=== PATIENT | male | born 1990 | race Caucasian/White ===

== ENCOUNTER 2018-01-15 08:46 | Emergency (ER) | payer OTHER, BC | END 2018-01-15 10:52 | disposition home or self-care (01) | LOC: M ED 08:46 | DX: S93.402A Sprain of unspecified ligament of left ankle, initial encounter (principal); X50.9XXA Other and unspecified overexertion or strenuous movements or postures, initial encounter; Y92.59 Other trade areas as the place of occurrence of the external cause; Y99.0 Civilian activity done for income or pay; F17.200 Nicotine dependence, unspecified, uncomplicated; Z88.1 Allergy status to other antibiotic agents; Z98.890 Other specified postprocedural states | CPT/HCPCS: 73610 ==

== ENCOUNTER 2019-06-10 20:07 | Inpatient (IN) | payer OTHER, SELFPAY ==
[~2019-06-10] VITALS: Ht 177.8 cm; Wt 92.2 kg
[~2019-06-10 20:07] MED LIST: NAPR-837 PO
[2019-06-10] MEDS ORDERED: NS 1,000 ML IV ONE (20:15)
[2019-06-10] MEDS ORDERED: ONDANSETRON 4MG/2ML VIAL (J2405) IV ONE (20:15)
[2019-06-10] MEDS: MORPHINE 4 MG/ML 1ML VIAL/SYRINGE (J2270) IV PRN ×4 (20:28→22:28)
[2019-06-10] MEDS ORDERED: ISOVUE-370 76% 100ML VIAL (Q9967) As Ordered ONE (20:32)
[2019-06-10 20:36] LABS: BASO # 0.1 10^3/uL (0.0-0.2); BASO % 0.5 % (0.0-1.0); EOS # 0.1 10^3/uL (0.0-0.50); HEMATOCRIT 43.3 % (42.0-52.0); HEMOGLOBIN 15.3 g/dl (13.5-17.5); LYMPH # 1.9 10^3/uL (1.5-6.5); LYMPH % 14.5 % (24.0-44.0); MEAN CORPUSCULAR HEMOGLOBIN 34.6 pg (27.0-33.0); MEAN CORPUSCULAR HGB CONC 35.3 g/dl (32.0-36.5); MONO # 0.8 10^3/uL (0.0-0.8); MONO % 5.9 % (0.0-5.0); NEUTROPHILS # 10.2 10^3/uL (1.8-7.7); PLATELET COUNT, AUTOMATED 267 10^3/uL (150-450); RED BLOOD COUNT 4.42 10^6/uL (4.30-6.10); WHITE BLOOD COUNT 13.3 10^3/uL (4.0-10.0)
[2019-06-10 20:47] LABS: INR 0.99; PARTIAL THROMBOPLASTIN TIME 24.1 SECONDS (25.0-38.4); PROTHROMBIN TIME 12.8 SECONDS (11.8-14.0)
[2019-06-10 21:01] LABS: ALBUMIN 4.2 GM/DL (3.2-5.2); ALT/SGPT 190 U/L (12-78); AMYLASE 64 U/L (25-115); BILIRUBIN,DIRECT 0.1 MG/DL (0.0-0.2); BILIRUBIN,TOTAL 0.3 MG/DL (0.2-1.0); BLOOD UREA NITROGEN 8 MG/DL (7-18); CALCIUM LEVEL 9.1 MG/DL (8.5-10.1); CARBON DIOXIDE LEVEL 25 MEQ/L (21-32); CHLORIDE LEVEL 107 MEQ/L (98-107); CK-MB VALUE MASS 3.1 NG/ML (<3.6); CPK CREATINE PHOSPHOKINASE 427 U/L (39-308); CREATININE FOR GFR 0.92 MG/DL (0.70-1.30); ETHYL ALCOHOL (ETHANOL) 0.203 % (0.000-0.010); GLOMERULAR FILTRATION RATE > 60.0 (>60); GLUCOSE, FASTING 133 MG/DL (70-100); LIPASE 140 U/L (73-393); MB/CK RELATIVE INDEX 0.73 (< OR =4); POTASSIUM SERUM 3.8 MEQ/L (3.5-5.1); SODIUM LEVEL 140 MEQ/L (136-145); TOTAL PROTEIN 7.7 GM/DL (6.4-8.2); TROPONIN I < 0.02 NG/ML (< 0.10)
[2019-06-10] MEDS ORDERED: METOCLOPRAMIDE INJ 10MG/2ML VIAL (J2765) IV PRN (22:30)
[2019-06-10] MEDS ORDERED: ONDANSETRON 4MG/2ML VIAL (J2405) IV PRN (22:30)
[2019-06-10] MEDS ORDERED: NORCO, ANEXSIA 5/325MG TABLET (HYDROcodone/ACETAMINOPHEN) PO PRN (22:30)
[2019-06-10] MEDS: KETOROLAC 30 MG/ML VIAL (J1885) IV SCH (23:07)
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
[2019-06-10 23:37] VITALS: BP 128/89
[2019-06-10] MEDS: LR 1,000 ML IV SCH (23:44)
[2019-06-11] MEDS: MORPHINE 4 MG/ML 1ML VIAL/SYRINGE (J2270) IV PRN ×6 (00:44→20:32)
[2019-06-11 02:00] VITALS: BP 122/60
[2019-06-11 05:54] LABS: BASO % 0.4 % (0.0-1.0); EOS # 0.1 10^3/uL (0.0-0.50); EOS % 1.2 % (0.0-3.0); HEMATOCRIT 37.8 % (42.0-52.0); LYMPH # 1.4 10^3/uL (1.5-6.5); LYMPH % 18.9 % (24.0-44.0); MEAN CORPUSCULAR HGB CONC 34.9 g/dl (32.0-36.5); MEAN CORPUSCULAR VOLUME 97.4 fl (80.0-96.0); MONO # 0.6 10^3/uL (0.0-0.8); MONO % 8.5 % (0.0-5.0); NEUTROPHILS # 5.2 10^3/uL (1.8-7.7); NEUTROPHILS % 70.5 % (36.0-66.0); PLATELET COUNT, AUTOMATED 193 10^3/uL (150-450); RED BLOOD COUNT 3.88 10^6/uL (4.30-6.10); WHITE BLOOD COUNT 7.4 10^3/uL (4.0-10.0)
[2019-06-11 05:59] LABS: HEMOGLOBIN 13.2 g/dl (13.5-17.5)
[2019-06-11 06:00] VITALS: BP 125/82
[2019-06-11] MEDS: KETOROLAC 30 MG/ML VIAL (J1885) IV SCH ×4 (06:15→23:03)
[2019-06-11 06:22] LABS: ALBUMIN 3.4 GM/DL (3.2-5.2); ALT/SGPT 142 U/L (12-78); BILIRUBIN,TOTAL 0.8 MG/DL (0.2-1.0); BLOOD UREA NITROGEN 8 MG/DL (7-18); CALCIUM LEVEL 8.2 MG/DL (8.5-10.1); CARBON DIOXIDE LEVEL 28 MEQ/L (21-32); CHLORIDE LEVEL 108 MEQ/L (98-107); CREATININE FOR GFR 0.84 MG/DL (0.70-1.30); GLOMERULAR FILTRATION RATE > 60.0 (>60); GLUCOSE, FASTING 91 MG/DL (70-100); POTASSIUM SERUM 3.5 MEQ/L (3.5-5.1); SODIUM LEVEL 140 MEQ/L (136-145); TOTAL PROTEIN 6.3 GM/DL (6.4-8.2)
--- NOTE | 2019-06-11 07:21 | REP ---
Portable chest, 08:23 p.m., single AP view, the patient upright: There are no comparisons. The lung rojas are clear. The cardiac size is normal. The aziza, mediastinum, and skeletal structures are unremarkable except for a left eighth rib fracture . Impression: Left eighth rib fracture, otherwise, portable chest. Electronically Signed by Tyler Flores MD 06/11/2019 07:13 A
--- NOTE | 2019-06-11 07:51 | REP ---
Portable chest, 07:01 a.m., single AP view with the patient semi upright: There is a faintly visible fracture laterally of the left eighth rib, nondisplaced. There is a focal pleural-based density in the mid left hemithorax, nonspecific, atelectasis, infiltrate, pulmonary contusion versus mass. The The right lung is clear. Cardiac size is upper normal for portable positioning. The aziza, mediastinum, skeletal structures are unremarkable. Impression: Nonspecific density peripherally in the left lung. Nondisplaced I left eighth rib fracture. Electronically Signed by Tyler Flores MD 06/11/2019 07:42 A
[2019-06-11] MEDS: DOCUSATE SODIUM 100 MG CAP PO SCH ×2 (09:27→20:30)
[2019-06-11] MEDS: PANTOPRAZOLE 40MG TAB (PROTONIX) PO SCH (09:27)
[2019-06-11 10:00] VITALS: BP 122/71
[2019-06-11] MEDS: LR 1,000 ML IV SCH (11:07)
--- NOTE | 2019-06-11 20:18 | REP ---
CT BRAIN WITHOUT IV CONTRAST: TECHNIQUE: CT brain performed without IV contrast. The ventricles are normal in size and position with no midline shift or mass effect. Amaya/white differentiation is well maintained. There is no acute intracranial hemorrhage or extra-axial fluid collection. No skull fracture is seen. Visualized paranasal sinuses are clear. IMPRESSION: Negative noncontrast CT brain. Preliminary report provided by [facility] at the time of the exam. Electronically Signed by Tyler Amaya MD 06/13/2019 10:52 A
[2019-06-11 22:00] VITALS: BP 127/72
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
--- NOTE | 2019-06-11 22:16 | REP ---
CT of the cervical spine without IV contrast for trauma: Axial images are acquired helical scanning and a reformatted sagittal and coronal projections. Vertebral body heights, interspacing alignment are normal. The facets are normally aligned. The prevertebral soft tissues are normal. The skull base, C1 and C2 are unremarkable. A small accessory ossicle is incidentally noted along the inferior margin of the C1 anterior process. There are no posterior element fractures. Impression: There is no fracture or listhesis. Electronically Signed by Tyler Flores MD 06/11/2019 10:08 P
[2019-06-12] MEDS: MORPHINE 4 MG/ML 1ML VIAL/SYRINGE (J2270) IV PRN ×4 (02:57→20:11)
[2019-06-12] MEDS: KETOROLAC 30 MG/ML VIAL (J1885) IV SCH (05:22)
[2019-06-12 06:00] VITALS: BP 145/85
[2019-06-12] MEDS: DOCUSATE SODIUM 100 MG CAP PO SCH ×2 (08:37→20:08)
[2019-06-12] MEDS: PANTOPRAZOLE 40MG TAB (PROTONIX) PO SCH (08:37)
[2019-06-12] MEDS: PERCOCET 5MG/325MG TAB PO PRN ×3 (08:38→23:03)
[2019-06-12] MEDS: IBUPROFEN 600 MG TAB PO SCH ×2 (11:41→20:08)
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
[2019-06-12 14:00] VITALS: BP 120/68
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
[2019-06-12 18:00] VITALS: BP 129/81
[2019-06-12] MEDS ORDERED: MOM 30ML SUSPENSION UDC PO ONE (21:45)
[2019-06-12 22:00] VITALS: BP 139/95
[2019-06-13] MEDS: IBUPROFEN 600 MG TAB PO SCH ×3 (01:03→12:29)
[2019-06-13 02:00] VITALS: BP 140/91
[2019-06-13 06:00] VITALS: BP 152/100
[2019-06-13 10:00] VITALS: BP 136/95
[2019-06-13] MEDS: DOCUSATE SODIUM 100 MG CAP PO SCH (10:41)
[2019-06-13] MEDS: PANTOPRAZOLE 40MG TAB (PROTONIX) PO SCH (10:42)
[2019-06-13] MEDS: PERCOCET 5MG/325MG TAB PO PRN (10:42)
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
[2019-06-13] MEDS ORDERED: PERCOCET PO (12:53)
== END 2019-06-13 13:43 | disposition home or self-care (01) | DRG 135 ==
LOC: M ED 20:07 → M ED INP 22:29 → M MSPAV 23:37
PROVIDERS: ADMIT Surgery; ATTEND Surgery
DX: S27.321A Contusion of lung, unilateral, initial encounter (principal); S22.42XA Multiple fractures of ribs, left side, initial encounter for closed fracture; Z88.1 Allergy status to other antibiotic agents; V86.56XA Driver of dirt bike or motor/cross bike injured in nontraffic accident, initial encounter; Y92.79 Other farm location as the place of occurrence of the external cause; F17.290 Nicotine dependence, other tobacco product, uncomplicated; Y93.89 Activity, other specified

== ENCOUNTER 2019-07-11 23:01 | Emergency (ER) | payer SELFPAY ==
[~2019-07-11] VITALS: Ht 177.8 cm; Wt 91.8 kg
[~2019-07-11 23:01] MED LIST changes: +PERCOCET PO
[2019-07-11 23:02] VITALS: BP 149/96
[2019-07-11] MEDS ORDERED: LIDOCAINE W/EPINEPHRINE 1% 20ML VIAL SC ONE (23:45)
== END 2019-07-12 00:13 | disposition home or self-care (01) ==
LOC: M ED 23:01
DX: S81.012A Laceration without foreign body, left knee, initial encounter (principal); W22.8XXA Striking against or struck by other objects, initial encounter; Y92.89 Other specified places as the place of occurrence of the external cause; R07.81 Pleurodynia; F17.210 Nicotine dependence, cigarettes, uncomplicated

== ENCOUNTER 2019-12-30 22:09 | Emergency (ER) | payer SELFPAY ==
[~2019-12-30] VITALS: Ht 177.8 cm; Wt 93.2 kg
[2019-12-30 23:19] LABS: BASO % 0.6 % (0.0-1.0); EOS # 0.1 10^3/uL (0.0-0.5); EOS % 2.7 % (0.0-3.0); HEMATOCRIT 42.6 % (42.0-52.0); HEMOGLOBIN 15.1 g/dl (13.5-17.5); LYMPH # 1.1 10^3/uL (1.5-5.0); LYMPH % 22.5 % (24.0-44.0); MEAN CORPUSCULAR HEMOGLOBIN 33.6 pg (27.0-33.0); MEAN CORPUSCULAR HGB CONC 35.4 g/dl (32.0-36.5); MEAN CORPUSCULAR VOLUME 94.7 fl (80.0-96.0); MONO # 0.5 10^3/uL (0.0-0.8); MONO % 11.2 % (0.0-5.0); NEUTROPHILS % 62.8 % (36.0-66.0); PLATELET COUNT, AUTOMATED 152 10^3/uL (150-450); WHITE BLOOD COUNT 4.8 10^3/uL (4.0-10.0)
[2019-12-30 23:34] LABS: INR 0.96; PROTHROMBIN TIME 12.5 SECONDS (11.8-14.0)
[2019-12-30 23:35] LABS: PARTIAL THROMBOPLASTIN TIME 27.9 SECONDS (25.0-38.4)
[2019-12-30 23:45] LABS: D-DIMER QUANT < 270 ng/ml (<500)
[2019-12-31 00:10] LABS: ALBUMIN 4.2 GM/DL (3.2-5.2); ALT/SGPT 182 U/L (12-78); BILIRUBIN,DIRECT 0.2 MG/DL (0.0-0.2); BILIRUBIN,TOTAL 0.5 MG/DL (0.2-1.0); BLOOD UREA NITROGEN 5 MG/DL (7-18); CARBON DIOXIDE LEVEL 27 MEQ/L (21-32); CHLORIDE LEVEL 104 MEQ/L (98-107); CK-MB VALUE MASS 4.1 NG/ML (<3.6); CPK CREATINE PHOSPHOKINASE 455 U/L (39-308); CREATININE FOR GFR 0.78 MG/DL (0.70-1.30); FREE T4 0.87 NG/DL (0.76-1.46); GLOMERULAR FILTRATION RATE > 60.0 (>60); GLUCOSE, FASTING 97 MG/DL (70-100); MAGNESIUM LEVEL 2.2 MG/DL (1.8-2.4); PHOSPHORUS LEVEL 3.5 MG/DL (2.5-4.9); POTASSIUM SERUM 3.6 MEQ/L (3.5-5.1); SODIUM LEVEL 141 MEQ/L (136-145); TOTAL PROTEIN 7.5 GM/DL (6.4-8.2); TROPONIN I < 0.02 NG/ML (< 0.10)
[2019-12-31 00:39] VITALS: BP 130/82
--- NOTE | 2019-12-31 03:05 | REP ---
Clinical: Chest pain . Comparison: 06/10/2019 . Technique: PA and lateral. Findings: The mediastinum and cardiac silhouette are normal. The lung rojas are clear and without acute consolidation, effusion, or pneumothorax. The skeletal structures are intact and normal. Impression: 1. No acute cardiopulmonary process. Electronically Signed by Enrique Horta MD 12/31/2019 02:57 A
--- NOTE | 2019-12-31 20:53 | ECGEPIP ---
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
== END 2019-12-31 00:53 | disposition home or self-care (01) ==
LOC: M ED 22:09
DX: R00.2 Palpitations (principal); I45.19 Other right bundle-branch block; F10.10 Alcohol abuse, uncomplicated; Z88.1 Allergy status to other antibiotic agents

== ENCOUNTER 2020-11-11 14:35 | Emergency (ER) | payer OTHER ==
[~2020-11-11] VITALS: Ht 177.8 cm; Wt 82.4 kg
--- OUTSIDE RECORDS SUMMARY | 2020-11-11 14:47 | CCD ---
Author Author [facility] Organization [facility] Address Unknown Phone Unavailable Support Name Relationship Address Phone MARIO FLORES Next Of Kin Unknown [employer] [place] [place] [address] [employer] Next Of Kin [id number] [address] [employer] Next Of Kin [address] [place] [address] John TAM Next Of Kin [address] [place] [address] Re-disclosure Warning The records that you are about to access may contain information from federally-assisted alcohol or drug abuse programs. If such information is present, then the following federally mandated warning applies: This information has been disclosed to you from records protected by federal confidentiality rules (42 CFR part 2). The federal rules prohibit you from making any further disclosure of this information unless further disclosure is expressly permitted by the written consent of the person to whom it pertains or as otherwise permitted by 42 CFR part 2. A general authorization for the release of medical or other information is NOT sufficient for this purpose. The Federal rules restrict any use of the information to criminally investigate or prosecute any alcohol or drug abuse patient.The records that you are about to access may contain highly sensitive health information, the redisclosure of which is protected by Article 27-F of the [place] State Public Health law. If you continue you may have access to information: Regarding HIV / AIDS; Provided by facilities licensed or operated by the [facility] of Mental Health; or Provided by the [facility] for People With Developmental Disabilities. If such information is present, then the following [facility] mandated warning applies: This information has been disclosed to you from confidential records which are protected by state law. State law prohibits you from making any further disclosure of this information without the specific written consent of the person to whom it pertains, or as otherwise permitted by law. Any unauthorized further disclosure in violation of state law may result in a fine or shelter sentence or both. A general authorization for the release of medical or other information is NOT sufficient authorization for further disc losure. Encounters Encounter Providers Location Date Indications Data Source(s ) Outpatient 01/22/2020 05:43:00 AM EDT [facility] Outpatient 01/21/2020 04:05:00 PM EDT [facility] Insurance Providers Payer name Policy type / Coverage type Policy ID Covered republican ID Covered republican's relationship to chapa Policy Chapa Plan Information [employer] INSUR[employer] [place] [id number] SP [id number] [employer] MECHANICALS SP BCBS [place] PPO 302/307 [id number] MO2 [id number] CIGNA/MVP/CONN GEN/PREFE O [id number] S [id number] EXCELLUS BCBS B [id number] S [id number] SELF PAY ONLY [id number] SP [id number] 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
--- OUTSIDE RECORDS SUMMARY | 2020-11-11 15:55 | CCD ---
Author Author [facility] Organization [facility] Address Unknown Phone Unavailable Support Name Relationship Address Phone MARIO FLORES Next Of Kin Unknown [employer] [place] [address] [employer] Next Of Kin [address] [address] [employer] Next Of Kin [address] [place] [address] John TAM Next Of Kin [address] [place], [place] [id number] Re-disclosure Warning The records that you are [...] is protected by Article 27-F of the [facility] Public [facility] law. If you continue you [...] law may result in a fine or senior living sentence or both. A general authorization for the release of medical or other information is NOT sufficient authorization for further disc losure. Encounters Encounter Providers Location Date Indications Data Source(s ) Outpatient 01/22/2020 05:43:00 AM EDT [facility] Outpatient 01/21/2020 04:05:00 PM EDT [facility] Insurance Providers Payer name Policy type / Coverage type Policy ID Covered libertarian ID Covered libertarian's relationship to chapa Policy Chapa Plan Information CIGNA INSURANCE CO [id number] SP [id number] [employer] MECHANICALS SP BCBS [place] PPO 302/307 [id number] CIGNA/MVP/CONN GEN/PREFE O [id number] S [id number] EXCELLUS BCBS B [id number] S [id number] SELF PAY ONLY [id number] SP [id number] 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
[2020-11-11] MEDS ORDERED: NS 1,000 ML IV ONE (18:00)
[2020-11-11 18:02] LABS: BASO % 0.6 % (0.0-1.0); EOS % 0.6 % (0.0-3.0); HEMATOCRIT 44.2 % (42.0-52.0); HEMOGLOBIN 15.7 g/dl (13.5-17.5); LYMPH # 1.4 10^3/uL (1.5-5.0); LYMPH % 21.7 % (24.0-44.0); MEAN CORPUSCULAR HEMOGLOBIN 33.9 pg (27.0-33.0); MEAN CORPUSCULAR HGB CONC 35.5 g/dl (32.0-36.5); MEAN CORPUSCULAR VOLUME 95.5 fl (80.0-96.0); MONO # 0.9 10^3/uL (0.0-0.8); MONO % 14.9 % (0.0-5.0); NEUTROPHILS # 3.9 10^3/uL (1.5-8.5); NEUTROPHILS % 61.9 % (36.0-66.0); PLATELET COUNT, AUTOMATED 228 10^3/uL (150-450); RED BLOOD COUNT 4.63 10^6/uL (4.30-6.10); WHITE BLOOD COUNT 6.3 10^3/uL (4.0-10.0)
--- NOTE | 2020-11-11 18:13 | REP ---
INDICATION: CHEST PAIN. COMPARISON: Comparison chest x-ray December 30, 2019. TECHNIQUE: Portable upright AP chest radiograph. FINDINGS: The lungs are well inflated and free of infiltrate. Pleural angles are sharp. Heart size is normal. Pulmonary vasculature is not increased. There are multiple old healed rib fractures on the left. Monitoring electrodes are seen. Periarticular ossific densities are seen adjacent to the distal clavicle on the left unchanged. This may be post traumatic change is well. No acute bony abnormality. IMPRESSION: No active disease. <Electronically signed by Ruiz Tran > 11/11/20 [id number]
[2020-11-11 18:29] LABS: ERYTHROCYTE SEDIMENTATION RATE 2 mm/hr (0-15)
--- NOTE | 2020-11-11 18:33 | ECGEPIP ---
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
[2020-11-11 18:44] LABS: ALBUMIN 4.6 GM/DL (3.2-5.2); ALT/SGPT 221 U/L (12-78); BILIRUBIN,DIRECT 0.7 MG/DL (0.0-0.2); CK-MB VALUE MASS 5.6 NG/ML (<3.6); CPK CREATINE PHOSPHOKINASE 756 U/L (39-308); FREE T4 1.01 NG/DL (0.76-1.46); LIPASE 293 U/L (73-393); MB/CK RELATIVE INDEX 0.74 (< OR =4); TOTAL PROTEIN 8.1 GM/DL (6.4-8.2); TROPONIN I < 0.02 NG/ML (< 0.10)
[2020-11-11 19:02] LABS: AMPHETAMINES LEVEL URINE NEGATIVE (NEGATIVE); BARBITURATES URINE NEGATIVE (NEGATIVE); BENZODIAZEPINES URINE NEGATIVE (NEGATIVE); CANNABINOIDS URINE POSITIVE (NEGATIVE); COCAINE METABOLITE URINE POSITIVE (NEGATIVE); METHADONE URINE NEGATIVE (NEGATIVE); OPIATES URINE NEGATIVE (NEGATIVE); PHENCYCLIDINE URINE NEGATIVE (NEGATIVE)
[2020-11-11] MEDS ORDERED: ISOVUE-370 76% 100ML VIAL As Ordered ONE (19:19)
--- NOTE | 2020-11-11 20:22 | REPVR ---
PROCEDURE INFORMATION: Exam: CT Angiography Chest With Contrast Exam date and time: 11/11/2020 7:44 PM Age: 30 years old Clinical indication: Shortness of breath; Additional info: Sob/elevated ddmier TECHNIQUE: Imaging protocol: Computed tomographic angiography of the chest with intravenous contrast. 3D rendering (Not supervised by radiologist): MIP and/or 3D reconstructed images were created by the technologist. Radiation optimization: All CT scans at this facility use at least one of these dose optimization techniques: automated exposure control; mA and/or kV adjustment per patient size (includes targeted exams where dose is matched to clinical indication); or iterative reconstruction. Contrast material: ISOVUE 370; Contrast volume: 75 ml; Contrast route: INTRAVENOUS (IV); COMPARISON: CT Chest with contrast 06/10/2019 8:44 PM FINDINGS: Pulmonary arteries: Normal. No pulmonary emboli. Aorta: Unremarkable. No aortic aneurysm. No aortic dissection. Lungs: Unremarkable. No consolidation. No masses. Pleural space: Unremarkable. No pneumothorax. No pleural effusion. Heart: Unremarkable. No cardiomegaly. No pericardial effusion. Lymph nodes: Unremarkable. No enlarged lymph nodes. Bones/joints: Unremarkable. No acute fracture. Soft tissues: Unremarkable. IMPRESSION: No acute findings. Electronically signed by: Kurtis Anthony On 11/11/2020 20:22:57 PM
[2020-11-11 21:00] VITALS: BP 134/95
== END 2020-11-11 21:04 | disposition home or self-care (01) ==
LOC: M ED 14:35
DX: E86.0 Dehydration (principal); F41.9 Anxiety disorder, unspecified; F12.20 Cannabis dependence, uncomplicated; Z88.1 Allergy status to other antibiotic agents
CPT/HCPCS: 36415; 71045; 71275; 80047; 80076; 80307; 82550; 82553; 83690; 84439; 84443; 84484; 85025; 85379; 85652; 86140; 87486; 87581; 87633; 87798; 93005; 99284; Q9967

== ENCOUNTER 2021-08-15 10:28 | Inpatient (IN) | payer OTHER, SELFPAY ==
[~2021-08-15] VITALS: Ht 177.8 cm; Wt 84.5 kg
--- OUTSIDE RECORDS SUMMARY | 2021-08-15 10:35 | CCD ---
Author Author [facility] Organization [facility] Address Unknown Phone Unavailable Support Name Relationship Address Phone MARIO FLORES Next Of Kin Unknown [employer] [place] [place] [address] [employer] Next Of Kin [id number] [address] [place] Next Of Kin [address] [place] [address] John TAM Next Of Kin [address] [place], [place] [id number] Re-disclosure Warning The records that you are [...] is protected by Article 27-F of the [facility] [place] Public Health law. If you continue you may have access to information: Regarding HIV / AIDS; Provided by facilities licensed or operated by the [facility] [place] Office of Mental Health; or Provided by the [facility] [place] Office for People With Developmental Disabilities. If such information is present, then the following [facility] [place] mandated warning applies: This information has been [...] NOT sufficient authorization for further disc losure. Medications No Information Insurance Providers Payer name Policy type / Coverage type Policy ID Covered green party ID Covered green party's relationship to chapa Policy Chapa Plan Information BLUE CROSS [id number] CH [id number] EXCELLUS C [id number] Self [id number] BLUE CROSS [id number] CH [id number] EXCELLUS C [id number] Child [id number] CIGNA/MVP/CONN GEN/PREFE O [id number] S [id number] EXCELLUS BCBS B [id number] S [id number] SELF PAY ONLY [id number] SP [id number] [employer]ERTY [employer] COMP [id number] SP [id number] LIBERTY MUTUAL INS [place] O [id number] O [id number] CIGNA INSURANCE CO [id number] SP [id number] CIGNA INSURANCE CO [id number] SP [id number] [employer] SP BCBS [place] PPO 302/307 [id number] MO2 [id number] Problems, Conditions, and Diagnoses No Information Surgeries/Procedures No Information Results ID Date Data Source [id number] 11/11/2020 05:33:00 PM EST [facility] Name Value Range Interpretation Code Description Data Stefany rce(s) Supporting Document(s) SARS-CoV-2 (COVID 19) NEGATIVE - SARS-CoV-2 (COVID19) [facility] This lab was ordered by [facility] a nd reported by [facility]. Procedure Social History No Information
[2021-08-15] MEDS ORDERED: MORPHINE 4 MG/ML 1ML VIAL/SYRINGE (J2270) IV ONE (11:35)
[2021-08-15] MEDS ORDERED: ONDANSETRON 4MG/2ML VIAL IV ONE ×2 (11:40→21:05)
[2021-08-15] MEDS ORDERED: ISOVUE-370 76% 100ML VIAL As Ordered ONE (11:49)
[2021-08-15 11:58] LABS: BASO # 0.1 10^3/uL (0.0-0.2); BASO % 0.5 % (0.0-1.0); EOS # 0.1 10^3/uL (0.0-0.5); EOS % 0.5 % (0.0-3.0); HEMOGLOBIN 15.3 g/dl (13.5-17.5); LYMPH # 1.4 10^3/uL (1.5-5.0); LYMPH % 10.4 % (24.0-44.0); MEAN CORPUSCULAR HEMOGLOBIN 34.7 pg (27.0-33.0); MEAN CORPUSCULAR HGB CONC 34.8 g/dl (32.0-36.5); MEAN CORPUSCULAR VOLUME 99.8 fl (80.0-96.0); MONO # 0.7 10^3/uL (0.0-0.8); MONO % 5.5 % (2.0-8.0); NEUTROPHILS # 10.9 10^3/uL (1.5-8.5); NEUTROPHILS % 82.8 % (36.0-66.0); PLATELET COUNT, AUTOMATED 249 10^3/uL (150-450); RED BLOOD COUNT 4.41 10^6/uL (4.30-6.10); WHITE BLOOD COUNT 13.2 10^3/uL (4.0-10.0)
[2021-08-15] MEDS ORDERED: KETOROLAC 30 MG/ML 1ML VIAL IV ONE (12:30)
[2021-08-15 12:33] LABS: ALBUMIN 3.9 GM/DL (3.2-5.2); BILIRUBIN,DIRECT 0.2 MG/DL (0.0-0.2); BILIRUBIN,TOTAL 0.5 MG/DL (0.2-1.0); TOTAL PROTEIN 7.1 GM/DL (6.4-8.2)
--- NOTE | 2021-08-15 12:48 | REP ---
INDICATION: incarerated hernia. COMPARISON: 06/10/2019 the latest prior TECHNIQUE: Standard helical technique after the intravenous administration of 100 cc Isovue 370 FINDINGS: The lung bases are clear. The liver, gallbladder, spleen, adrenal glands, and kidneys are within normal limits. There is peripancreatic fatty infiltration with fluid in the anterior pararenal space. There is fluid in the left paracolic gutter. There is a small amount of fluid in the lesser sac. There is a small amount of fluid trapped within the leaves of the small bowel mesentery. There is a small amount of free pelvic fluid. There is dilatation of the intra pancreatic common bile duct which measures 1.9 cm. The abdominal aorta and para-aortic regions are within normal limits. There is no evidence of intestinal obstruction. A few small bowel loops in the left upper quadrant have mildly thickened lackey. There is no evidence of free intraperitoneal air. Bone window technique throughout the examination shows the osseous structures to be stable and intact. IMPRESSION: 1. There is pancreatitis with related findings secondary to that condition as described above. 2. Likely reactive small-bowel enteritis. 3. Dilatation of the intrapancreatic common bile duct as described above. This should be followed up. 4. Other findings as described above. <Electronically signed by David Bustillo > 08/15/21 [id number]
[2021-08-15] MEDS ORDERED: NS 1,000 ML IV ONE ×2 (12:50→14:50)
[2021-08-15] MEDS ORDERED: PANTOPRAZOLE 40MG VIAL (C9113 PER 1) IV ONE (13:00)
[2021-08-15] MEDS ORDERED: MORPHINE 2 MG/ML 1ML VIAL (J2270) IV ONE (13:10)
--- OUTSIDE RECORDS SUMMARY | 2021-08-15 13:38 | CCD ---
Author Author [facility] Organization [facility] Address Unknown Phone Unavailable Support Name Relationship Address Phone MARIO FLORES Next Of Kin Unknown [employer] [place] [place] [address] [employer] Next Of Kin [phone] [address] [place] Next Of Kin [address] [place] [address] John TAM Next Of Kin [address] [place], [place] [id number] Re-disclosure Warning The records that you are [...] is protected by Article 27-F of the [facility] Public Health law. If you continue you may have access to information: Regarding HIV / AIDS; Provided by facilities licensed or operated by the [facility] Office of Mental Health; or Provided by the [facility] Office for People With Developmental Disabilities. If such information is present, then the following [facility] mandated warning applies: This information has been [...] chapa Policy Chapa Plan Information BLUE CROSS [id number] CH [id number] EXCELLUS C [id number] Self [id number] BLUE CROSS [id number] CH [id number] EXCELLUS C [id number] Child [id number] CIGNA/MVP/CONN GEN/PREFE O [id number] S [id number] EXCELLUS BCBS B [id number] S [id number] SELF PAY ONLY [id number] SP [id number] [employer] WORK[employer] COMP [id number] SP [id number] LIBERTY MUTUAL INS CO O [id number] O [id number] CIGNA INSURANCE CO [id number] SP [id number] CIGNA INSURANCE CO [id number] SP [id number] [employer] SP BCBS [place] PPO 302/307 [id number] MO2 [id number] Problems, Conditions, and Diagnoses No Information Surgeries/Procedures No Information Results ID Date Data Source [id number] 11/11/2020 05:33:00 PM EST [facility] Name Value Range Interpretation Code Description Data Stefany rce(s) Supporting Document(s) SARS-CoV-2 (COVID 19) NEGATIVE - SARS-CoV-2 (COVID19) [facility] This lab was ordered by [facility] a nd reported by [facility]. Procedure Social History No Information
[2021-08-15] MEDS ORDERED: HYDROmorphone 2 MG TAB PO ONE ×2 (14:05→14:10)
[2021-08-15] MEDS ORDERED: HOME MED LIST COMPLETE! XX SCH (14:10)
[2021-08-15] MEDS ORDERED: HYDROMORPHONE HCL 0.5 MG/ 0.5 ML SYRINGE (J1170 PER 1) IV ONE (14:10)
--- NOTE | 2021-08-15 15:37 | REP ---
INDICATION: possible intrapancreatic duct blockage. COMPARISON: No prior ultrasounds for comparison. TECHNIQUE: Real-time sonographic evaluation of the right upper quadrant. FINDINGS: The patient has known pancreatitis from prior CT obtained earlier today which was reviewed. There is no evidence of intrahepatic ductal dilatation. The common bile duct measures between 3 and 4 mm. There is evidence of dilatation of the intrapancreatic common bile duct. This was seen better on CT. There is no shane gallbladder abnormality. There is no pericholecystic edema. There is no evidence of cholelithiasis. The imaged portion the right kidney is within normal limits. The pancreas is difficult to visualize due to known pancreatitis. There is free fluid. IMPRESSION: 1. Known pancreatitis. 2. No shane gallbladder abnormality. 3. Evidence of dilatation of the intrapancreatic common bile duct. Etiology unknown. No definite choledocholithiasis was identified on this exam. Consider MRCP if clinically relevant. <Electronically signed by David Bustillo > 08/15/21 [id number]
[2021-08-15 15:39] LABS: ALBUMIN 3.7 GM/DL (3.2-5.2); BILIRUBIN,DIRECT 0.2 MG/DL (0.0-0.2); BILIRUBIN,TOTAL 0.5 MG/DL (0.2-1.0); TOTAL PROTEIN 6.6 GM/DL (6.4-8.2)
--- NOTE | 2021-08-15 16:49 | REP ---
INDICATION: possible stone intrapancreatic CBD. COMPARISON: CT and ultrasound today. TECHNIQUE: Multiple heavily T2 weighted sequences are obtained in the axial and coronal planes. 3D MIP reconstruction images are performed. FINDINGS: There is no intrahepatic or extrahepatic biliary dilatation. There is no gross biliary stricture and no focal dilatation. Common bile duct has a maximum diameter of approximately 2 mm. Pancreatic duct is normal in caliber. Gallbladder is mildly distended with no wall thickening or edema. No internal filling defect or gallstone is seen. There is no evidence of choledocholithiasis. The pancreas demonstrates diffuse edema with findings of diffuse pancreatitis. A cystic structure in the head of the pancreas demonstrates a fluid level and likely represents a hemorrhagic or proteinaceous pseudocyst, maximum diameter 2.1 cm. The liver, spleen, adrenals, and kidneys are grossly unremarkable. I see no adenopathy in the abdomen.There is mild free fluid throughout the abdomen. IMPRESSION: Findings compatible with pancreatitis. Cystic structure in the pancreatic head likely represents a hemorrhagic or proteinaceous pseudocyst 2.1 cm. No intrahepatic or extrahepatic biliary dilatation. No pancreatic duct dilatation. Unremarkable appearance of the gallbladder. Mild diffuse free fluid. <Electronically signed by Tyler Amaya > 08/15/21 [id number]
[2021-08-15] MEDS ORDERED: fentaNYL 100 MCG/2 ML INJECTION (J3010) IV ONE (16:50)
[2021-08-15] MEDS ORDERED: LR 1,000 ML IV ONE (17:10)
[2021-08-15] MEDS: NS 1,000 ML IV SCH ×2 (17:45→22:45)
--- OUTSIDE RECORDS SUMMARY | 2021-08-15 17:50 | CCD ---
Author Author [facility] Organization [facility] Address Unknown Phone Unavailable Support Name Relationship Address Phone MARIO FLORES Next Of Kin Unknown [employer] [place] [place] [address] [employer] Next Of Kin [address] [address] [place] Next Of Kin [address] [place] [address] John TAM Next Of Kin [address] [place], [place] [id number] Re-disclosure Warning The records that you are [...] is protected by Article 27-F of the [facility] Public Health law. If you continue you may have access to information: Regarding HIV / AIDS; Provided by facilities licensed or operated by the [facility] Office of Mental Health; or Provided by the [facility] Office for People With Developmental Disabilities. If such information is present, then the following [facility] mandated warning applies: This information has [...] law may result in a fine or halfway sentence or both. A general authorization for the release of medical or other information is NOT sufficient authorization for further disc losure. Medications No Information Insurance Providers Payer name Policy type / Coverage type Policy ID Covered libertarian ID Covered libertarian's relationship to chapa Policy Chapa Plan Information BLUE CROSS [id number] CH [id number] EXCELLUS C [id number] Self [id number] BLUE CROSS [id number] CH [id number] EXCELLUS C [id number] Child [id number] CIGNA/MVP/CONN GEN/PREFE O [id number] S [id number] EXCELLUS BCBS B [id number] S [id number] SELF PAY ONLY [id number] SP [id number] [employer] COMP [id number] SP [id number] LIBERTY MUTUAL INS CO O [id number] O [id number] CIGNA INSURANCE CO [id number] SP [id number] CIGNA INSURANCE CO [id number] SP [id number] [employer] SP BCBS [place] PPO 302/307 [id number] MO2 [id number] Problems, Conditions, and Diagnoses No Information Surgeries/Procedures No Information Results ID Date Data Source [id number] 11/11/2020 05:33:00 PM EST [facility] Name Value Range Interpretation Code Description Data Stefany rce(s) Supporting Document(s) SARS-CoV-2 (COVID 19) NEGATIVE - SARS-CoV-2 (COVID19) [facility] This lab was ordered by [facility] a nd reported by [facility]. Procedure Social History No Information
[2021-08-15] MEDS ORDERED: LORazepam 2 MG/ML VIAL IV PRN (18:10)
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
[2021-08-15] MEDS: HYDROMORPHONE HCL 0.5 MG/ 0.5 ML SYRINGE (J1170 PER 1) IV PRN ×2 (18:33→21:09)
[2021-08-15 21:33] LABS: BLOOD UREA NITROGEN 8 MG/DL (7-18); CALCIUM LEVEL 8.5 MG/DL (8.5-10.1); CARBON DIOXIDE LEVEL 23 MEQ/L (21-32); CHLORIDE LEVEL 110 MEQ/L (98-107); CREATININE FOR GFR 0.78 MG/DL (0.70-1.30); GLOMERULAR FILTRATION RATE > 60.0 (>60); GLUCOSE, FASTING 111 MG/DL (70-100); MAGNESIUM LEVEL 1.4 MG/DL (1.8-2.4); POTASSIUM SERUM 4.1 MEQ/L (3.5-5.1); SODIUM LEVEL 144 MEQ/L (136-145)
[2021-08-15 22:42] VITALS: BP 142/90
[2021-08-15] MEDS: HYDROmorphone HCL 2 MG/ML 1ML VIAL IV PRN (22:55)
[2021-08-16] VITALS (11 sets, daily range): BP systolic 140–169; BP diastolic 84–103; O2SAT 94
[2021-08-16] MEDS ORDERED: MORPHINE 4 MG/ML 1ML VIAL/SYRINGE (J2270) IV ONE ×2 (01:10→06:40)
[2021-08-16] MEDS: MAG SULF 1GM/100ML (MAG RUN) 1 GM in IV 1 EA IV SCH ×2 (01:21→03:55)
[2021-08-16] MEDS: FOLIC ACID 1 MG in NS 50 ML IV SCH ×2 (02:40→20:11)
[2021-08-16] MEDS: HYDROmorphone HCL 2 MG/ML 1ML VIAL IV PRN ×3 (02:41→20:11)
[2021-08-16] MEDS: THIAMINE 200MG 2ML VIAL IV SCH ×2 (02:53→09:28)
[2021-08-16] MEDS: NS 1,000 ML IV SCH ×4 (03:55→20:11)
[2021-08-16] MEDS ORDERED: HYDROMORPHONE HCL 0.5 MG/ 0.5 ML SYRINGE (J1170 PER 1) IV ONE (04:05)
[2021-08-16] MEDS ORDERED: NALOXONE INJ 0.4MG/1ML VIAL (J2310 PER 1MG) IV PRN (04:05)
[2021-08-16 05:21] LABS: BASO % 0.2 % (0.0-1.0); HEMATOCRIT 37.5 % (42.0-52.0); LYMPH # 0.5 10^3/uL (1.5-5.0); LYMPH % 4.5 % (24.0-44.0); MEAN CORPUSCULAR HEMOGLOBIN 35.2 pg (27.0-33.0); MEAN CORPUSCULAR HGB CONC 35.2 g/dl (32.0-36.5); MONO # 0.5 10^3/uL (0.0-0.8); MONO % 5.2 % (2.0-8.0); NEUTROPHILS # 9.1 10^3/uL (1.5-8.5); NEUTROPHILS % 89.7 % (36.0-66.0); PLATELET COUNT, AUTOMATED 190 10^3/uL (150-450); RED BLOOD COUNT 3.75 10^6/uL (4.30-6.10); WHITE BLOOD COUNT 10.1 10^3/uL (4.0-10.0)
[2021-08-16 05:25] LABS: HEMOGLOBIN 13.2 g/dl (13.5-17.5)
[2021-08-16 05:51] LABS: ALBUMIN 3.4 GM/DL (3.2-5.2); ALT/SGPT 107 U/L (12-78); BILIRUBIN,TOTAL 1.5 MG/DL (0.2-1.0); BLOOD UREA NITROGEN 12 MG/DL (7-18); CALCIUM LEVEL 7.7 MG/DL (8.5-10.1); CARBON DIOXIDE LEVEL 26 MEQ/L (21-32); CHLORIDE LEVEL 105 MEQ/L (98-107); CREATININE FOR GFR 0.79 MG/DL (0.70-1.30); GLOMERULAR FILTRATION RATE > 60.0 (>60); GLUCOSE, FASTING 126 MG/DL (70-100); LDH LACTATE DEHYDROGENASE 230 U/L (87-241); LIPASE 5881 U/L (73-393); MAGNESIUM LEVEL 1.9 MG/DL (1.8-2.4); NT-PRO BNP 343 PG/ML (<125); POTASSIUM SERUM 3.8 MEQ/L (3.5-5.1); SODIUM LEVEL 139 MEQ/L (136-145)
--- NOTE | 2021-08-16 09:20 | REP ---
INDICATION: acute abdominal rigidity COMPARISON: 03/10/2021. TECHNIQUE: CT Scan of the abdomen and pelvis was performed without intravenous contrast. Sagittal and coronal reconstruction images performed. FINDINGS: Lung bases: There are bibasilar atelectatic changes. Liver: Grossly unremarkable. Gallbladder: Excreted contrast is seen in the lumen of the gallbladder. Spleen: Grossly unremarkable. Adrenals: Normal. Pancreas: There are again findings consistent with pancreatitis.. Kidneys: No hydronephrosis. Ureters demonstrate no dilatation or calculus. A subcentimeter calculus is visualized in the lower pole the left kidney. Small and large bowel: There are mildly dilated small bowel loops in left upper quadrant most consistent with ileus. Free fluid: There is mild diffuse abdominal and pelvic ascites which has increased since the prior study.. There is no free air. Abdominal aorta: No aneurysm. Adenopathy: None. Appendix: Not inflamed. Osseous structures: Unremarkable. Pelvis: No mass. No bladder calculus seen. IMPRESSION: There are findings consistent with pancreatitis. Mild diffuse abdominal and pelvic ascites has mildly increased since the prior exam. No free air or obstruction. Mild small bowel ileus left upper quadrant. <Electronically signed by Tyler Amaya > 08/16/21 0955
[2021-08-16] MEDS ORDERED: OXAZEPAM 10 MG CAP PO ONE (12:00)
[2021-08-16] MEDS ORDERED: diazePAM 10MG/2ML SYRINGE (J3360 PER 5MG) IV ONE (12:40)
[2021-08-16] MEDS: HYDROMORPHONE HCL 0.5 MG/ 0.5 ML SYRINGE (J1170 PER 1) IV PRN (15:42)
[2021-08-16] MEDS: LORazepam 2 MG/ML VIAL IV PRN ×2 (19:13→22:22)
--- NOTE | 2021-08-16 20:58 | IPNPDOC ---
Date Seen The patient was seen on 08/16/21. Progress Note SUBJECTIVE: Patient is a -year-old [RACE] [GENDER] with OBJECTIVE PHYSICAL EXAMINATION: VITAL SIGNS: Please see below. GENERAL: HEENT: CARDIOVASCULAR: . RESPIRATORY: . ABDOMINAL: EXTREMITIES: NEUROLOGICAL: PSYCHOLOGICAL: LABORATORY DATA, IMAGING STUDIES, MICROBIOLOGY: Please see below. Echocardiogram: . DVT prophylaxis ordered?: ASSESSMENT AND PLAN: This is a -year-old [RACE] [GENDER] with . PROBLEMS: 1. : . 2. : . 3. : . DISPOSITION: . VS, I&O, 24H, [facility] Vital Signs/I&O Vital Signs Date Time Temp Pulse Resp B/P (MAP) Pulse Ox O2 Delivery O2 Flow Rate FiO2 08/16/21 20:11 18 Room Air 08/16/21 20:00 99.3 80 156/90 (112) 93 I&O- Last 24 Hours up to 6 AM 08/16/21 06:00 Intake Total 4500 ml Output Total 200 ml Balance 4300 ml Laboratory Data 24H LABS Laboratory Tests 2 08/16/21 04:20: Urine Color KAMI, Urine Appearance HAZY, Urine pH 5.0, Urine Specific [place] 1.036, Urine Protein 2+H, Urine Glucose (UA) NEGATIVE, Urine Ketones 1+H, Urine Blood 1+H, Urine Nitrite NEGATIVE, Urine Bilirubin NEGATIVE, Urine Urobilinogen 0.2, Urine Leukocyte Esterase NEGATIVE, Urine WBC (Auto) 2, Urine RBC (Auto) 0, Urine Hyaline Casts (Auto) 0, Urine Bacteria (Auto) NEGATIVE, Urine Squamous Epithelial Cells 0, Urine Mucus (Auto) SMALL, Urine Sperm (Auto) 08/16/21 05:11: Immature Granulocyte % (Auto) 0.4, Neutrophils (%) (Auto) 89.7H, Lymphocytes (%) (Auto) 4.5L, Monocytes (%) (Auto) 5.2, Eosinophils (%) (Auto) 0.0, Basophils (%) (Auto) 0.2, Neutrophils # (Auto) 9.1H, Lymphocytes # (Auto) 0.5L, Monocytes # (Auto) 0.5, Eosinophils # (Auto) 0.0, Basophils # (Auto) 0.0, Nucleated Red Blood Cells % (auto) 0.0, Anion Gap 8, Glomerular Filtration Rate > 60.0, Lactic Acid Level 0.9, Calcium Level 7.7L, Magnesium Level 1.9, Total Bilirubin 1.5#H, Aspartate Amino Transf (AST/SGOT) 87H, Alanine Aminotransferase (ALT/SGPT) 107H, Alkaline Phosphatase 51, Ammonia 32, Lactate Dehydrogenase 230, VV-Jum-Z-Type Natriuretic Peptide 343H, Total Protein 6.0L, Albumin 3.4, Albumin/Globulin Ratio 1.3, Lipase 5881H CBC/BMP Laboratory Tests 08/16/21 05:11 Microbiology Microbiology 08/15/21 Blood Culture - Preliminary, Resulted 08/15/21 Blood Culture - Preliminary, Resulted No growth after 24 hours . All specim... BERT BILLINGS MD Aug 16, 2021 20:58
[2021-08-16] MEDS: OXAZEPAM 10 MG CAP PO SCH (22:22)
[2021-08-17] VITALS (15 sets, daily range): BP systolic 132–170; BP diastolic 70–118; O2SAT 93–97
[2021-08-17] MEDS: HYDROmorphone HCL 2 MG/ML 1ML VIAL IV PRN ×2 (00:31→04:03)
[2021-08-17] MEDS: NS 1,000 ML IV SCH ×5 (01:26→21:49)
[2021-08-17] MEDS: LORazepam 2 MG/ML VIAL IV PRN ×6 (04:03→20:13)
[2021-08-17 04:53] LABS: BASO % 0.2 % (0.0-1.0); HEMATOCRIT 37.8 % (42.0-52.0); HEMOGLOBIN 13.2 g/dl (13.5-17.5); LYMPH # 0.5 10^3/uL (1.5-5.0); LYMPH % 4.5 % (24.0-44.0); MEAN CORPUSCULAR HEMOGLOBIN 34.7 pg (27.0-33.0); MEAN CORPUSCULAR HGB CONC 34.9 g/dl (32.0-36.5); MEAN CORPUSCULAR VOLUME 99.5 fl (80.0-96.0); MONO # 0.9 10^3/uL (0.0-0.8); MONO % 7.9 % (2.0-8.0); NEUTROPHILS # 9.6 10^3/uL (1.5-8.5); NEUTROPHILS % 86.5 % (36.0-66.0); PLATELET COUNT, AUTOMATED 145 10^3/uL (150-450); WHITE BLOOD COUNT 11.1 10^3/uL (4.0-10.0)
[2021-08-17 05:16] LABS: ALBUMIN 2.7 GM/DL (3.2-5.2); ALT/SGPT 66 U/L (12-78); BILIRUBIN,TOTAL 1.2 MG/DL (0.2-1.0); BLOOD UREA NITROGEN 7 MG/DL (7-18); CALCIUM LEVEL 7.1 MG/DL (8.5-10.1); CARBON DIOXIDE LEVEL 27 MEQ/L (21-32); CHLORIDE LEVEL 103 MEQ/L (98-107); CREATININE FOR GFR 0.66 MG/DL (0.70-1.30); GLOMERULAR FILTRATION RATE > 60.0 (>60); GLUCOSE, FASTING 87 MG/DL (70-100); LIPASE 1939 U/L (73-393); MAGNESIUM LEVEL 1.6 MG/DL (1.8-2.4); POTASSIUM SERUM 3.6 MEQ/L (3.5-5.1); SODIUM LEVEL 136 MEQ/L (136-145); TOTAL PROTEIN 5.4 GM/DL (6.4-8.2)
[2021-08-17] MEDS: OXAZEPAM 10 MG CAP PO SCH ×3 (06:14→21:49)
[2021-08-17] MEDS ORDERED: diazePAM 10MG/2ML SYRINGE (J3360 PER 5MG) IV ONE (08:00)
[2021-08-17] MEDS: MAG SULF 1GM/100ML (MAG RUN) 1 GM in IV 1 EA IV SCH ×2 (08:44→11:36)
[2021-08-17] MEDS: THIAMINE 200MG 2ML VIAL IV SCH (08:44)
--- NOTE | 2021-08-17 09:15 | REP ---
INDICATION: hypoxia. COMPARISON: 11/11/2020. TECHNIQUE: Single portable AP view of the chest was performed. FINDINGS: There is poor ventilation. There is bibasilar fibro atelectatic change. There is an area of increased density medially in the left lung base which may represent focal atelectasis or infiltrate. The heart and mediastinum are unremarkable. There are old left rib fractures. IMPRESSION: Possible focal atelectasis or infiltrate medial left lung base. <Electronically signed by Tyler Amaya > 08/17/21 0935
[2021-08-17] MEDS: HYDROMORPHONE HCL 0.5 MG/ 0.5 ML SYRINGE (J1170 PER 1) IV PRN ×3 (10:38→18:37)
[2021-08-17] MEDS ORDERED: IBUPROFEN 400MG TAB PO ONE (13:00)
[2021-08-17] MEDS ORDERED: cefTRIAXone SOD 1 GM in D5W MINI-BAG PLUS 50 ML IV SCH (18:00)
--- NOTE | 2021-08-17 18:04 | IPNPDOC ---
Date Seen The patient was seen on 08/17/21. Progress Note SUBJECTIVE: seen and examined at bedside. Sitter reports that patient was hallucinating overnight, both visual and auditory, attempted to crawl out of bed. Patient denies events. States he is feeling well. Visibly tremulous. Denies AH/VH. Febrile overnight, Tmax 101.0. Denies cough, dysuria, diarrhea, rashes. OBJECTIVE PHYSICAL EXAMINATION: VITAL SIGNS: please see below General: NAD, comfortable HEENT: PERRLA, EOMI, sclerae clear Neck: supple, normal ROM, no JVD Respiratory: lungs CTAB, no wheeze, no rales, no crackles CVS: tachycardic to 120s, regular, normal S1, S2, no murmurs Abdo: soft, no masses, no hepatosplenomegaly, BS+, no rebound tenderness Extremities: no edema, pulses 2+ MSK: no joint deformities, normal ROM Neuro: no focal neuro deficits, moving all 4 extremities, CN2-12 intact. Strength 5/5 in all 4 extremities. No nystagmus. Psych: calm, cooperative, AAO x 2-3 LABORATORY DATA, IMAGING STUDIES, MICROBIOLOGY: Please see below. DVT prophylaxis ordered?: heparin ASSESSMENT AND PLAN:31 M, hx ETOH use disorder who presents with epigastric abdominal pain. Although, AST and ALT are both elevated, MRCP was negative for biliary dilatation. Pancreatitis with pseudocyst. Patient's acute pancreatitis most likely secondary to alcohol use. Diet was advanced. PROBLEMS: Acute etoh withdrawal/DT: AH/VH. Tachycardia. Febrile. c/w CIWA. Serax 20 mg TID scheduled. Ativan 2mg IV q1h prn. Valium 5 mg prn. Monitor closely. C/w IVF. Acute pancreatitis likely 2/2 etoh use: abdominal pain much improved. Diet advanced to CLD. Reduce IVF to 100 cc/hr NS. Dilaudid for pain prn. Fever: suspect 2/2 acute etoh withdrawal, DT. Blood cultures 08/15/21 prelim neg. UA with cx. Blood cultures. CXR showing focal atelectasis vs infiltrate L lung base. Start ceftriaxone and azithromycin. DVT ppx: heparin 5000 units q8h. Dispo: pending clinical improvement. Asking to leave AMA. Patient does not have capacity to leave AMA as he is in acute etoh withdrawal, with active AH and VH. VS, I&O, 24H, Fishbone Vital Signs/I&O Vital Signs Date Time Temp Pulse Resp B/P (MAP) Pulse Ox O2 Delivery O2 Flow Rate FiO2 08/17/21 16:00 98.5 88 20 141/97 (112) 93 Room Air 08/17/21 07:49 2.0 I&O- Last 24 Hours up to 6 AM 08/17/21 06:00 Intake Total 3450 ml Output Total 1600 ml Balance 1850 ml Laboratory Data 24H LABS Laboratory Tests 2 08/17/21 04:33: Immature Granulocyte % (Auto) 0.9, Neutrophils (%) (Auto) 86.5H, Lymphocytes (%) (Auto) 4.5L, Monocytes (%) (Auto) 7.9, Eosinophils (%) (Auto) 0.0, Basophils (%) (Auto) 0.2, Neutrophils # (Auto) 9.6H, Lymphocytes # (Auto) 0.5L, Monocytes # (Auto) 0.9H, Eosinophils # (Auto) 0.0, Basophils # (Auto) 0.0, Nucleated Red Blood Cells % (auto) 0.0, Anion Gap 6L, Glomerular Filtration Rate > 60.0, Calcium Level 7.1L, Magnesium Level 1.6L, Total Bilirubin 1.2H, Aspartate Amino Transf (AST/SGOT) 51H, Alanine Aminotransferase (ALT/SGPT) 66, Alkaline Phosphatase 51, Total Protein 5.4L, Albumin 2.7#L, Albumin/Globulin Ratio 1.0, Lipase 1939H CBC/BMP Laboratory Tests 08/17/21 04:33 Microbiology Microbiology 08/15/21 Blood Culture - Preliminary, Resulted 08/15/21 Blood Culture - Preliminary, Resulted No Growth after 48 hours. All Specime... BERT BILLINGS MD Aug 17, 2021 18:04
[2021-08-17] MEDS ORDERED: HALOPERIDOL 5MG/ML VIAL (J1630 PER 1) IM PRN (18:45)
[2021-08-17 19:29] LABS: FREE T4 0.92 NG/DL (0.76-1.46); THYROID STIMULATING HORMONE 0.631 uIU/ML (0.358-3.740); TROPONIN I < 0.02 NG/ML (< 0.10)
[2021-08-17] MEDS: FOLIC ACID 1 MG in NS 50 ML IV SCH (20:13)
[2021-08-17] MEDS: metroNIDAZOLE 500 MG in IV 1 EA IV SCH ×2 (21:48→21:55)
[2021-08-17] MEDS ORDERED: HEPARIN SOD (PORCINE) 5000UNITS/ML 1ML VIAL/SYRINGE SQ SCH (22:00)
--- NOTE | 2021-08-18 01:53 | IPNPDOC ---
Text Note Date of Service The patient was seen on 08/18/21. NOTE Mr. To is a 31 year old male who was admitted to the hospital for acute p ancreatitis. The hospitalist team was called to his room around 22:00 on the evening of 08/17/21 by his nurse Virginia. The patient was very adamant about leaving the hospital tonight because he has multiple pets at home who need care. He also stated that his job has been calling him and they need him to return to work this evening. The severity of his decision to leave the hospital against medical advice was explained to him in great detail. He is on CIWA protocol and was educated on the detrimental effects of alcohol withdrawal. The patient did not appear psychotic and denied suicidal or homicidal ideations. He signed an AMA form and finished his bag of IV antibiotics before departing the facility. This was discussed with my attending Dr. Rouse and she also agreed the patient was deemed fit to leave AMA. VS,Luis Miguele, I+O VS, Rhonda, I+O Laboratory Tests 08/17/21 04:33 Vital Signs Date Time Temp Pulse Resp B/P (MAP) Pulse Ox O2 Delivery O2 Flow Rate FiO2 08/17/21 22:00 97.8 100 18 134/70 (91) 92 Nasal Cannula 2.0 I&O- Last 24 Hours up to 6 AM 08/18/21 06:00 Intake Total 3050 ml Output Total 425 ml Balance 2625 ml MARY MARTÍNEZ DO Aug 18, 2021 01:53
--- NOTE | 2021-08-20 16:48 | ECGEPIP ---
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
== END 2021-08-17 23:04 | disposition left against medical advice (07) | DRG 282 ==
LOC: M ED 10:28 → CMPBEDREQ 17:02 → M ED INP 17:40 → M PCU 22:41
PROVIDERS: ADMIT Internal Medicine; ATTEND Internal Medicine
DX: K85.20 Alcohol induced acute pancreatitis without necrosis or infection (principal); K86.2 Cyst of pancreas; F17.290 Nicotine dependence, other tobacco product, uncomplicated; Z20.822 Contact with and (suspected) exposure to COVID-19; F10.139 Alcohol abuse with withdrawal, unspecified

== ENCOUNTER 2021-08-18 01:19 | Inpatient (IN) | payer OTHER, SELFPAY ==
[~2021-08-18] VITALS: Ht 177.8 cm; Wt 90.7 kg
--- OUTSIDE RECORDS SUMMARY | 2021-08-18 01:25 | CCD ---
Author Author [facility] Organization [facility] Address Unknown Phone Unavailable Support Name Relationship Address Phone MARIO FLORES Next Of Kin Unknown [employer] [place] [address] [employer] Next Of Kin [phone] [address] LAWMAN Next Of Kin [address] [place], [place] [id number] John TAM Next Of Kin [address] [place] [address] John TAM ECON [address] [place] [address] Re-disclosure Warning The records that you are [...] is protected by Article 27-F of the [facility] Public Health law. If you continue you may have access to information: Regarding HIV / AIDS; Provided by facilities licensed or operated by the [facility] Office of Mental Health; or Provided by the [facility] Office for People With Developmental Disabilities. If such information is present, then the following [facility] mandated warning applies: This information has been [...] law may result in a fine or fdc sentence or both. A general authorization for the release of medical or other information is NOT sufficient authorization for further disc losure. Medications No Information Insurance Providers Payer name Policy type / Coverage type Policy ID Covered constitution party ID Covered constitution party's relationship to chapa Policy Chapa Plan Information BLUE CROSS [id number] CH [id number] EXCELLUS C [id number] Self [id number] BLUE CROSS [id number] CH [id number] EXCELLUS C [id number] Child [id number] CIGNA/MVP/CONN GEN/PREFE O [id number] S [id number] EXCELLUS BCBS B [id number] S [id number] SELF PAY ONLY [id number] SP [id number] LIBERTY M[employer]UAL WORK[employer] COMP [id number] SP [id number] LIBERTY MUTUAL INS [place] O [id number] O [id number] CIGNA INSURANCE CO [id number] SP [id number] CIGNA INSURANCE CO [id number] SP [id number] [employer] SP BCBS [place] PPO 302/307 [id number] MO2 [id number] Problems, Conditions, and Diagnoses No Information Surgeries/Procedures No Information Results ID Date Data Source [id number] 11/11/2020 05:33:00 PM EST [facility] Name Value Range Interpretation Code Description Data Stefany rce(s) Supporting Document(s) SARS-CoV-2 (COVID 19) NEGATIVE - SARS-CoV-2 (COVID19) [place] This lab was ordered by [facility] a nd reported by [facility]. Procedure Social History No Information
[2021-08-18] MEDS ORDERED: NS 1,000 ML IV ONE ×2 (08:05→08:15)
[2021-08-18] MEDS ORDERED: IBUPROFEN 800 MG TAB PO ONE (08:10)
[2021-08-18] MEDS ORDERED: ALBUTEROL 90 MCG/ACT 8GM HFA INHALER INH ONE (08:10)
[2021-08-18] MEDS: LORazepam 2 MG TAB PO PRN ×2 (08:34→12:17)
[2021-08-18 08:42] LABS: BASO % 0.2 % (0.0-1.0); EOS % 0.1 % (0.0-3.0); HEMATOCRIT 35.7 % (42.0-52.0); HEMOGLOBIN 12.6 g/dl (13.5-17.5); LYMPH # 0.3 10^3/uL (1.5-5.0); LYMPH % 3.5 % (24.0-44.0); MEAN CORPUSCULAR HEMOGLOBIN 34.8 pg (27.0-33.0); MEAN CORPUSCULAR HGB CONC 35.3 g/dl (32.0-36.5); MEAN CORPUSCULAR VOLUME 98.6 fl (80.0-96.0); MONO # 0.9 10^3/uL (0.0-0.8); MONO % 9.6 % (2.0-8.0); NEUTROPHILS # 8.2 10^3/uL (1.5-8.5); NEUTROPHILS % 86.2 % (36.0-66.0); PLATELET COUNT, AUTOMATED 134 10^3/uL (150-450); RED BLOOD COUNT 3.62 10^6/uL (4.30-6.10); WHITE BLOOD COUNT 9.5 10^3/uL (4.0-10.0)
--- OUTSIDE RECORDS SUMMARY | 2021-08-18 08:47 | CCD ---
Author Author [facility] Organization [facility] Address Unknown Phone Unavailable Support Name Relationship Address Phone MARIO FLORES Next Of Kin Unknown [employer] [place] [place] [address] [employer] Next Of Kin [address] [address] LAWMAN Next Of Kin [address] [place], [place] [phone] John TAM Next Of Kin [address] [place] [address] John TAM ECON [address] [place] [address] Re-disclosure Warning The records that you are [...] is protected by Article 27-F of the [facility] Public Health law. If you continue you may have access to information: Regarding HIV / AIDS; Provided by facilities licensed or operated by the [facility] Office of Mental Health; or Provided by the [facility] Office for People With Developmental Disabilities. If such information is present, then the following [facility] mandated warning applies: This information has [...] law may result in a fine or half-way sentence or both. A general authorization for the release of medical or other information is NOT sufficient authorization for further disc losure. Medications No Information Insurance Providers Payer name Policy type / Coverage type Policy ID Covered constitution party ID Covered constitution party's relationship to chapa Policy Chapa Plan Information BLUE CROSS [id number] CH [id number] EXCELLUS C [id number] Self [id number] BLUE CROSS [id number] CH [id number] EXCELLUS C [id number] Child [id number] CIGNA/MVP/CONN GEN/PREFE O [id number] S [id number] EXCELLUS BCBS B [id number] S [id number] SELF PAY ONLY [id number] SP [id number] [employer] COMP [id number] SP [id number] LIB[employer] M[employer] INS CO O [id number] O [id number] CIGNA INSURANCE CO [id number] SP [id number] CIGNA INSURANCE CO [id number] SP [id number] [employer] SP BCBS [place] PPO 302/307 [id number] MO2 [id number] Problems, Conditions, and Diagnoses No Information Surgeries/Procedures No Information Results ID Date Data Source [id number] 11/11/2020 05:33:00 PM EST [facility] Name Value Range Interpretation Code Description Data Stefany rce(s) Supporting Document(s) SARS-CoV-2 (COVID 19) NEGATIVE - SARS-CoV-2 (COVID19) [facility] This lab was ordered by [facility] a nd reported by [facility]. Procedure Social History No Information
[2021-08-18 09:19] LABS: ALBUMIN 2.7 GM/DL (3.2-5.2); ALT/SGPT 49 U/L (12-78); AMYLASE 255 U/L (25-115); BILIRUBIN,DIRECT 0.5 MG/DL (0.0-0.2); BILIRUBIN,TOTAL 1.3 MG/DL (0.2-1.0); CK-MB VALUE MASS < 1.0 NG/ML (<3.6); CPK CREATINE PHOSPHOKINASE 118 U/L (39-308); ETHYL ALCOHOL (ETHANOL) < 0.003 % (0.000-0.010); LIPASE 896 U/L (73-393); MB/CK RELATIVE INDEX 0.85 (< OR =4); TOTAL PROTEIN 5.5 GM/DL (6.4-8.2); TROPONIN I < 0.02 NG/ML (< 0.10)
[2021-08-18] MEDS ORDERED: ISOVUE-370 76% 100ML VIAL As Ordered ONE (10:06)
--- NOTE | 2021-08-18 10:14 | REP ---
INDICATION: SOB, wheezing, fever. COMPARISON: Multiple the latest 08/17/2021 TECHNIQUE: PA and lateral FINDINGS: There are bibasilar opacities increased on the left and newly developed on the right and seen in conjunction with bilateral CP angle blunting. There is no significant change in the cardiomediastinal silhouette or osseous structures. IMPRESSION: Bibasilar opacities as described above. Subsegmental atelectatic change versus pneumonia. Small bilateral pleural effusion cannot be ruled out. <Electronically signed by David Bustillo > 08/18/21 1010
[2021-08-18 10:35] LABS: ABG BASE EXCESS -2.4 (-2.0-2.0); ABG O2 SATURATION 94.8 % (95.0-99.0); ABG PARTIAL PRESSURE CO2 31.8 mmHg (35.0-45.0); ABG PARTIAL PRESSURE O2 68.8 mmHg (75.0-100.0); ABG STANDARD HCO3 22.5 MEQ/L (22.0-26.0); ABG pH (ARTERIAL) 7.438 UNITS (7.350-7.450)
--- NOTE | 2021-08-18 11:06 | REP ---
INDICATION: abd and b/l flank pain, pancreatitis. COMPARISON: Multiple the latest 08/16/2021 a noncontrast enhanced examination and the latest contrast-enhanced examination of 08/15/2020 TECHNIQUE: Standard helical technique after the intravenous administration of 100 cc Isovue 370 FINDINGS: There are bilateral pleural effusions seen in the lung bases. Once again, there are findings consistent with pancreatitis. There is free fluid in the abdomen. There is fluid in the lesser sac. There is fluid and fatty infiltration in the left anterior pararenal space. There is an unchanged cystic structure in the pancreatic head. Multiple mildly dilated fluid and gas-filled small bowel loops are seen in the abdomen centrally unchanged. There is no evidence of free air. There is dense material seen in the gallbladder secondary to vicarious excretion of contrast material from prior CTs. The liver and spleen are unchanged. The adrenal glands and kidneys are unchanged. The abdominal aorta and para-aortic regions are unchanged. There is no change in the osseous structures. IMPRESSION: 1. There are bilateral pleural effusions which have developed since the prior exam. 2. Changes consistent with pancreatitis which appear essentially unchanged as described above. There is what is most likely a slight reactive small bowel ileus. Other findings as described above. <Electronically signed by David Bustillo > 08/18/21 1103
--- NOTE | 2021-08-18 11:07 | REP ---
INDICATION: sob, elevated dimer, r/o PE. COMPARISON: None. TECHNIQUE: CT angiogram chest performed following the intravenous administration of 100 cc of Isovue 370. Sagittal and coronal reconstruction images are performed. FINDINGS: Lungs: There is patchy bilateral atelectasis/infiltrate. Mediastinum: No adenopathy. Pulmonary arteries: No evidence of pulmonary embolism. Sabrina: No adenopathy. Axilla: No adenopathy. Pleura: There are moderate bilateral pleural effusions.. Heart: Not enlarged. Thoracic aorta: No aneurysm or dissection. Visualized osseous structures: There are several old healed left rib fractures. IMPRESSION: No CT evidence of pulmonary embolism. Moderate bilateral pleural effusions with patchy bilateral infiltrates/atelectasis. <Electronically signed by Tyler Amaya > 08/18/21 [id number]
[2021-08-18 11:58] LABS: AMPHETAMINES LEVEL URINE NEGATIVE (NEGATIVE); BARBITURATES URINE NEGATIVE (NEGATIVE); BENZODIAZEPINES URINE POSITIVE (NEGATIVE); CANNABINOIDS URINE POSITIVE (NEGATIVE); COCAINE METABOLITE URINE NEGATIVE (NEGATIVE); METHADONE URINE NEGATIVE (NEGATIVE); OPIATES URINE POSITIVE (NEGATIVE); PHENCYCLIDINE URINE NEGATIVE (NEGATIVE)
[2021-08-18] MEDS ORDERED: PIPERACILLIN/TAZOBACTAM SOD 4.5 GM in D5W MINI-BAG PLUS 50 ML IV ONE (12:40)
[2021-08-18] MEDS ORDERED: HOME MED LIST COMPLETE! XX SCH (13:25)
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
[2021-08-18] MEDS ORDERED: MAALOX 30 ML SUSP *UDC PO PRN (13:40)
[2021-08-18] MEDS ORDERED: MOM 30ML SUSPENSION UDC PO PRN (13:40)
--- OUTSIDE RECORDS SUMMARY | 2021-08-18 13:58 | CCD ---
Author Author [facility] Organization [facility] Address Unknown Phone Unavailable Support Name Relationship Address Phone MARIO FLORES Next Of Kin Unknown [employer] [place] [place] [address] [employer] Next Of Kin [address] [address] [employer] Next Of Kin [address] [place], [place] [id number] John TAM Next Of Kin [address] [place] [address] John TAM ECON [address] [place] [address] Re-disclosure Warning The records that you are [...] is protected by Article 27-F of the [facility] Public Health law. If you continue you may have access to information: Regarding HIV / AIDS; Provided by facilities licensed or operated by the [facility] Office of Mental Health; or Provided by the [facility] Office for People With Developmental Disabilities. If such information is present, then the following [facility] mandated warning applies: This information has [...] law may result in a fine or long-term sentence or both. A general authorization for the release of medical or other information is NOT sufficient authorization for further disc losure. Medications No Information Insurance Providers Payer name Policy type / Coverage type Policy ID Covered republican ID Covered republican's relationship to chapa Policy Chapa Plan Information BLUE CROSS [id number] CH [id number] EXCELLUS C [id number] Self [id number] BLUE CROSS [id number] CH [id number] EXCELLUS C [id number] Child [id number] CIGNA/MVP/CONN GEN/PREFE O [id number] S [id number] EXCELLUS BCBS B [id number] S [id number] SELF PAY ONLY [id number] SP [id number] [employer] COMP [id number] SP [id number] [employer] CO O [id number] O [id number] CIGNA INSURANCE CO [id number] SP [id number] CIGNA INSURANCE CO [id number] SP [id number] [employer] SP BCBS [place] PPO 302/307 [id number] MO2 [id number] Problems, Conditions, and Diagnoses No Information Surgeries/Procedures No Information Results ID Date Data Source [id number] 11/11/2020 05:33:00 PM EST [facility] Name Value Range Interpretation Code Description Data Stefany rce(s) Supporting Document(s) SARS-CoV-2 (COVID 19) NEGATIVE - SARS-CoV-2 (COVID19) [place] This lab was ordered by [facility] a nd reported by [facility]. Procedure Social History No Information
[2021-08-18] MEDS ORDERED: LORazepam 2 MG TAB PO PRN (14:00)
[2021-08-18] MEDS ORDERED: FUROSEMIDE 40MG/4ML VIAL (J1940) IV ONE (14:00)
[2021-08-18] MEDS: OXAZEPAM 10 MG CAP PO SCH ×2 (14:56→21:11)
[2021-08-18] MEDS: MULTIVITAMINS/MINERALS THERAP 1 TAB PO SCH (14:56)
[2021-08-18] MEDS: FOLIC ACID 1 MG TAB PO SCH (14:56)
[2021-08-18] MEDS: THIAMINE 100 MG TAB PO SCH ×2 (14:56→21:11)
[2021-08-18 15:09] VITALS: BP 164/102
[2021-08-18 15:15] VITALS: BP 162/104
[2021-08-18] MEDS: ACETAMINOPHEN TAB 650MG DOSE (2X325MG) PO PRN ×2 (15:24→23:24)
[2021-08-18] MEDS: MORPHINE 2 MG/ML 1ML VIAL (J2270) IV PRN ×2 (16:11→20:40)
[2021-08-18 16:43] VITALS: BP 139/99
[2021-08-18] MEDS: PIPERACILLIN/TAZOBACTAM SOD 4.5 GM in D5W MINI-BAG PLUS 50 ML IV SCH (18:17)
--- NOTE | 2021-08-18 20:20 | ECGEPIP ---
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
[2021-08-18] MEDS: NICOTINE 14 MG/24 HR TRANSDERMAL TD PRN (21:11)
[2021-08-18 22:00] VITALS: BP 160/104
[2021-08-18 23:00] VITALS: BP 160/104
[2021-08-19] MEDS: PIPERACILLIN/TAZOBACTAM SOD 4.5 GM in D5W MINI-BAG PLUS 50 ML IV SCH ×5 (00:52→23:49)
[2021-08-19] MEDS: MORPHINE 2 MG/ML 1ML VIAL (J2270) IV PRN ×5 (00:52→19:17)
[2021-08-19] MEDS: OXAZEPAM 10 MG CAP PO SCH ×3 (05:10→21:17)
[2021-08-19 06:00] VITALS: BP 164/106
[2021-08-19] MEDS ORDERED: ACETAMINOPHEN TAB 650MG DOSE (2X325MG) PO PRN (08:10)
[2021-08-19] MEDS: LIDOCAINE 5% (LIDODERM) PATCH TD SCH (09:26)
[2021-08-19] MEDS: THIAMINE 100 MG TAB PO SCH ×2 (09:26→20:10)
[2021-08-19] MEDS: FOLIC ACID 1 MG TAB PO SCH (09:26)
[2021-08-19] MEDS: MULTIVITAMINS/MINERALS THERAP 1 TAB PO SCH (09:26)
[2021-08-19] MEDS: NICOTINE 14 MG/24 HR TRANSDERMAL TD PRN (09:36)
[2021-08-19 12:00] VITALS: BP 164/102
[2021-08-19] MEDS: PERCOCET 5MG/325MG TAB PO PRN ×2 (12:19→21:50)
[2021-08-19 14:00] VITALS: BP 142/90
--- NOTE | 2021-08-19 19:38 | IPNPDOC ---
Subjective Date Seen The patient was seen on 08/19/21. Subjective Chief Complaint/HPI Mr. To is a 31-year-old male with alcohol use disorder who is here for alcohol withdrawal. Patient was recently admitted for acute pancreatitis and acute alcohol withdrawal and left AMA on 08/17/2021. When I saw patient this morning, he also has abdominal pain was better. He was doing okay with his clear liquid diet. His main concern is his back pain. I have added on Percocet and lidocaine patch. Objective Physical Examination General Exam: Positive: Alert, Cooperative ENT Exam: Positive: Atraumatic Chest Exam: Positive: Clear to auscultation Heart Exam: Positive: Rate Normal, Regular Rhythm Abdomen Exam: Positive: Normal bowel sounds, Soft; Negative: Tenderness Extremity Exam: Negative: Edema Neuro Exam: Positive: Normal Speech Psych Exam: Positive: Mental status NL, Mood NL Assessment /Plan Assessment Mr. To is a 31-year-old male with alcohol use disorder who is here for alcohol withdrawal. Patient was recently admitted for acute pancreatitis and acute alcohol withdrawal and left AMA on 08/17/2021. Patient's acute pancreatitis is resolved. We will start patient on clears liquid diet and advance as tolerated. Otherwise, patient's alcohol withdrawal improved with Serax. Patient has not needed the lorazepam. Plan/VTE VTE Prophylaxis Ordered?: Yes Plan 1. SIRS Possible secondary to alcohol withdrawal versus pneumonia Patient had a fever of 101.3 with tachycardia, no leukocytosis 1 of 2 blood cultures are positive for staph hominis on 08/15/2021. Most likely contaminant Patient empirically on Zosyn day 2 2. Alcohol withdrawal Patient was tachycardic and had a fever Patient on Serax with as needed lorazepam Patient doing well on Serax, has not needed lorazepam 3. Bilateral pleural effusions Most likely secondary to aggressive hydration during acute pancreatitis Patient was given a dose of Lasix Hold on IVF Patient saturating well at room air 4. Acute pancreatitis secondary to alcohol use Abdominal pain improved No need for Dilaudid Clear liquid diet and advance as tolerated 5. Low back pain No bowel/bladder incontinence or retention Working on pain control Lidocaine patch and as needed Percocet 6. Fever We will likely secondary to alcohol withdrawal Currently on Zosyn 7. DVT prophylaxis Subcu heparin Disposition: Pending clinical improvement VS, I&O, 24H, Fishbone Vital Signs/I&O Vital Signs Date Time Temp Pulse Resp B/P (MAP) Pulse Ox O2 Delivery O2 Flow Rate FiO2 08/19/21 19:17 20 08/19/21 14:00 97.7 64 142/90 (107) 96 Room Air 08/18/21 10:22 3.0 I&O- Last 24 Hours up to 6 AM 08/19/21 06:00 Intake Total 5180 ml Balance 5180 ml Laboratory Data Microbiology Microbiology 08/18/21 Blood Culture - Preliminary, Resulted No growth after 24 hours . All specim... 08/18/21 Blood Culture - Preliminary, Resulted No growth after 24 hours . All specim... 08/18/21 Respiratory Virus Panel (PCR) (BALJINDER) - Final, Complete BERTA SCHMITT DO Aug 19, 2021 19:38
[2021-08-19 20:00] VITALS: BP 160/98
[2021-08-19] MEDS: **NOTE PATIENT COMMENT** MISC XX SCH (20:11)
[2021-08-19 21:53] VITALS: BP 158/94
[2021-08-20] MEDS: MORPHINE 2 MG/ML 1ML VIAL (J2270) IV PRN ×4 (02:56→21:54)
[2021-08-20 04:00] VITALS: BP 146/90
[2021-08-20] MEDS: PIPERACILLIN/TAZOBACTAM SOD 4.5 GM in D5W MINI-BAG PLUS 50 ML IV SCH ×4 (05:18→23:05)
[2021-08-20] MEDS: OXAZEPAM 10 MG CAP PO SCH ×3 (05:19→21:21)
[2021-08-20 06:00] VITALS: BP 162/100
[2021-08-20] MEDS: PERCOCET 5MG/325MG TAB PO PRN ×4 (06:04→23:05)
[2021-08-20 07:08] LABS: HEMATOCRIT 33.2 % (42.0-52.0); HEMOGLOBIN 11.8 g/dl (13.5-17.5); MEAN CORPUSCULAR HEMOGLOBIN 34.7 pg (27.0-33.0); MEAN CORPUSCULAR HGB CONC 35.5 g/dl (32.0-36.5); MEAN CORPUSCULAR VOLUME 97.6 fl (80.0-96.0); PLATELET COUNT, AUTOMATED 204 10^3/uL (150-450); WHITE BLOOD COUNT 8.5 10^3/uL (4.0-10.0)
[2021-08-20 07:29] LABS: BLOOD UREA NITROGEN 5 MG/DL (7-18); CALCIUM LEVEL 8.2 MG/DL (8.5-10.1); CARBON DIOXIDE LEVEL 28 MEQ/L (21-32); CHLORIDE LEVEL 100 MEQ/L (98-107); CREATININE FOR GFR 0.63 MG/DL (0.70-1.30); GLOMERULAR FILTRATION RATE > 60.0 (>60); GLUCOSE, FASTING 87 MG/DL (70-100); SODIUM LEVEL 135 MEQ/L (136-145)
[2021-08-20 07:58] LABS: ERYTHROCYTE SEDIMENTATION RATE 38 mm/hr (0-15)
[2021-08-20] MEDS: MULTIVITAMINS/MINERALS THERAP 1 TAB PO SCH (08:53)
[2021-08-20] MEDS: FOLIC ACID 1 MG TAB PO SCH (08:53)
[2021-08-20] MEDS: THIAMINE 100 MG TAB PO SCH ×2 (08:54→20:41)
[2021-08-20] MEDS: LIDOCAINE 5% (LIDODERM) PATCH TD SCH (08:54)
[2021-08-20] MEDS ORDERED: ACETAMINOPHEN TAB 650MG DOSE (2X325MG) PO PRN (09:35)
[2021-08-20] MEDS ORDERED: POTASSIUM CHLORIDE 10MEQ SR TABLET PO ONE (10:00)
[2021-08-20 12:00] VITALS: BP 158/102
[2021-08-20 14:00] VITALS: BP 158/102
--- NOTE | 2021-08-20 16:52 | IPNPDOC ---
Subjective Date Seen The patient was seen on 08/20/21. Subjective Chief Complaint/HPI Mr. To is a 31-year-old male with alcohol use disorder who is here for alcohol withdrawal. Patient was recently admitted for acute pancreatitis and acute alcohol withdrawal and left AMA on 08/17/2021. Patient was seen this morning. Denies chest pain or dyspnea. Abdominal pain is improved. He felt he could tolerate a solid diet. His main complaint is his back pain. Alternating between morphine and Percocet helped. Later in the aft ernoon, patient had another fever 100.5 without tachycardia. We will repeat blood cultures. Otherwise, we will work on weaning him off of IV morphine. I have increased the frequency of Percocet and decrease the frequency of morphine Objective Physical Examination General Exam: Positive: Alert, Cooperative ENT Exam: Positive: Atraumatic Chest Exam: Positive: Clear to auscultation Heart Exam: Positive: Rate Normal, Regular Rhythm Abdomen Exam: Positive: Normal bowel sounds, Soft; Negative: Tenderness Extremity Exam: Negative: Edema Neuro Exam: Positive: Normal Speech Psych Exam: Positive: Mental status NL, Mood NL Assessment /Plan Assessment Mr. To is a 31-year-old male with alcohol use disorder who is here for alcohol withdrawal. Patient was recently admitted for acute pancreatitis and acute alcohol withdrawal and left AMA on 08/17/2021. Patient's acute pancreatitis is resolved. We will start patient on clears liquid diet and advance as tolerated. Otherwise, patient's alcohol withdrawal improved with Serax. Patient has not needed the lorazepam. Plan/VTE VTE Prophylaxis Ordered?: Yes Plan 1. SIRS Possible secondary to alcohol withdrawal versus pneumonia Patient had a fever of 101.3 with tachycardia, no leukocytosis 1 of 2 blood cultures are positive for staph hominis on 08/15/2021. Most likely contaminant Patient empirically on Zosyn day [address] of the abdomen pelvis with IV contrast did not show any change from prior Unclear etiology of fever as CT angio chest was not suggestive of infection. Patient has no leukocytosis. CRP is elevated Question if this is a beta-lactam fever versus alcohol withdrawal related fever We will repeat blood cultures and continue antibiotics 4. Alcohol withdrawal Patient was tachycardic and had a fever Patient on Serax with as needed lorazepam Patient doing well on Serax, has not needed lorazepam 5. Bilateral pleural effusions Most likely secondary to aggressive hydration during acute pancreatitis Patient was given a dose of Lasix Hold on IVF Patient saturating well at room air 6. Acute pancreatitis secondary to alcohol use Abdominal pain improved No need for Dilaudid Clear liquid diet and advance as tolerated 7. Low back pain No bowel/bladder incontinence or retention Working on pain control Lidocaine patch and as needed Percocet 6. DVT prophylaxis Subcu heparin Disposition: Pending improvement in fevers and back pain VS, I&O, 24H, Fishbone Vital Signs/I&O Vital Signs Date Time Temp Pulse Resp B/P (MAP) Pulse Ox O2 Delivery O2 Flow Rate FiO2 08/20/21 15:21 16 Room Air 08/20/21 14:00 100.5 87 158/102 (120) 97 08/18/21 10:22 3.0 I&O- Last 24 Hours up to 6 AM 08/20/21 06:00 Intake Total 1160 ml Output Total 0 ml Balance 1160 ml Laboratory Data 24H LABS Laboratory Tests 2 08/20/21 05:21: Nucleated Red Blood Cells % (auto) 0.0, Erythrocyte Sedimentation Rate 38H, Anion Gap 7L, Glomerular Filtration Rate > 60.0, Calcium Level 8.2L, Magnesium Level 2.0, C-Reactive Protein, Quantitative 13.40H CBC/BMP Laboratory Tests 08/20/21 05:21 Microbiology Microbiology 08/18/21 Blood Culture - Preliminary, Resulted No Growth after 48 hours. All Specime... 08/18/21 Blood Culture - Preliminary, Resulted No Growth after 48 hours. All Specime... 08/18/21 Respiratory Virus Panel (PCR) ([facility]) - Final, Complete BERTA SCHMITT DO Aug 20, 2021 16:52
[2021-08-20 20:00] VITALS: BP 150/102
[2021-08-20] MEDS: **NOTE PATIENT COMMENT** MISC XX SCH (20:42)
[2021-08-20 22:00] VITALS: BP 159/97
[2021-08-21 04:00] VITALS: BP 170/100
[2021-08-21] MEDS: OXAZEPAM 10 MG CAP PO SCH ×3 (05:18→21:00)
[2021-08-21] MEDS: PIPERACILLIN/TAZOBACTAM SOD 4.5 GM in D5W MINI-BAG PLUS 50 ML IV SCH ×4 (05:18→23:38)
[2021-08-21] MEDS: MORPHINE 2 MG/ML 1ML VIAL (J2270) IV PRN ×3 (05:32→22:04)
[2021-08-21 05:57] LABS: HEMATOCRIT 35.5 % (42.0-52.0); HEMOGLOBIN 12.3 g/dl (13.5-17.5); MEAN CORPUSCULAR HEMOGLOBIN 34.1 pg (27.0-33.0); MEAN CORPUSCULAR HGB CONC 34.6 g/dl (32.0-36.5); MEAN CORPUSCULAR VOLUME 98.3 fl (80.0-96.0); PLATELET COUNT, AUTOMATED 295 10^3/uL (150-450); RED BLOOD COUNT 3.61 10^6/uL (4.30-6.10)
[2021-08-21 06:00] VITALS: BP 164/100
[2021-08-21] MEDS: PERCOCET 5MG/325MG TAB PO PRN ×4 (06:15→22:37)
[2021-08-21 06:23] LABS: BLOOD UREA NITROGEN 7 MG/DL (7-18); CALCIUM LEVEL 8.9 MG/DL (8.5-10.1); CARBON DIOXIDE LEVEL 27 MEQ/L (21-32); CHLORIDE LEVEL 98 MEQ/L (98-107); CREATININE FOR GFR 0.62 MG/DL (0.70-1.30); GLOMERULAR FILTRATION RATE > 60.0 (>60); GLUCOSE, FASTING 81 MG/DL (70-100); MAGNESIUM LEVEL 1.9 MG/DL (1.8-2.4); POTASSIUM SERUM 3.3 MEQ/L (3.5-5.1); SODIUM LEVEL 134 MEQ/L (136-145)
[2021-08-21] MEDS ORDERED: POTASSIUM CHLORIDE 10MEQ SR TABLET PO ONE (08:00)
[2021-08-21] MEDS: FOLIC ACID 1 MG TAB PO SCH (08:21)
[2021-08-21] MEDS: MULTIVITAMINS/MINERALS THERAP 1 TAB PO SCH (08:21)
[2021-08-21] MEDS: LIDOCAINE 5% (LIDODERM) PATCH TD SCH (08:21)
[2021-08-21] MEDS ORDERED: ISOVUE-370 76% 100ML VIAL As Ordered ONE (09:59)
--- NOTE | 2021-08-21 11:12 | IPNPDOC ---
Subjective Date Seen The patient was seen on 08/21/21. Subjective Chief Complaint/HPI Mr. To is a 31-year-old male with alcohol use disorder who is here for alcohol withdrawal. He is slowly tolerating a solid diet. He realizes he can't eat quickly. Still has back pain. Denies chest pain or dyspnea. Due to patient's repeated fevers, there is a concern for infected pancreatic cyst. Ordered for CT abd/pelvis to re-evaluate. Objective Physical Examination General Exam: Positive: Alert, Cooperative ENT Exam: Positive: Atraumatic Chest Exam: Positive: Clear to auscultation Heart Exam: Positive: Rate Normal, Regular Rhythm Abdomen Exam: Positive: Normal bowel sounds, Soft; Negative: Tenderness Extremity Exam: Negative: Edema Neuro Exam: Positive: Normal Speech Psych Exam: Positive: Mental status NL, Mood NL Assessment /Plan Assessment Mr. To is a 31-year-old male with alcohol use disorder who is here for alcohol withdrawal. Patient was recently admitted for acute pancreatitis and acute alcohol withdrawal and left AMA on 08/17/2021. Patient's acute pancreatitis is resolved and he is tolerating an oral diet. Otherwise, patient's alcohol withdrawal improved with Serax. Patient has not needed the lorazepam. Plan/VTE VTE Prophylaxis Ordered?: Yes Plan 1. SIRS Possible secondary to alcohol withdrawal versus pneumonia Patient had a fever of 101.3 with tachycardia, no leukocytosis 1 of 2 blood cultures are positive for staph hominis on 08/15/2021. Most likely contaminant Patient empirically on Zosyn day [address] of the abdomen pelvis with IV contrast did not show any change from prior Unclear etiology of fever as CT angio chest was not suggestive of infection. -Will repeat CT abd/pelvis due to back pain and pancreatic cyst. Concern for infected cyst. Otherwise, question if this is a beta-lactam fever versus alcohol withdrawal related fever CRP is elevated Pending repeat blood cultures results -Continue antibiotics 4. Alcohol withdrawal Patient was tachycardic and had a fever Patient on Serax with as needed lorazepam Patient doing well on Serax, has not needed lorazepam 5. Bilateral pleural effusions Most likely secondary to aggressive hydration during acute pancreatitis Patient was given a dose of Lasix Hold on IVF Patient saturating well at room air 6. Acute pancreatitis secondary to alcohol use Abdominal pain resolved and tolerated solid diet No need for Dilaudid 7. Low back pain No bowel/bladder incontinence or retention Working on pain control Lidocaine patch and as needed Percocet -Possibly related to pancreatic cyst -Reorder CT abd/pelvis as mentioned above 6. DVT prophylaxis Subcu heparin Disposition: Pending improvement in fevers and back pain VS, I&O, 24H, Fishbone Vital Signs/I&O Vital Signs Date Time Temp Pulse Resp B/P (MAP) Pulse Ox O2 Delivery O2 Flow Rate FiO2 08/21/21 10:30 16 Room Air 08/21/21 06:00 99.6 64 94 08/21/21 06:00 164/100 (121) 08/18/21 10:22 3.0 I&O- Last 24 Hours up to 6 AM 08/21/21 06:00 Intake Total 1220 ml Output Total 0 ml Balance 1220 ml Laboratory Data 24H LABS Laboratory Tests 2 08/21/21 05:30: Nucleated Red Blood Cells % (auto) 0.0, Anion Gap 9, Glomerular Filtration Rate > 60.0, Calcium Level 8.9, Magnesium Level 1.9 CBC/BMP Laboratory Tests 08/21/21 05:30 Microbiology Microbiology 08/20/21 Blood Culture, Received Pending 08/20/21 Blood Culture, Received Pending 08/18/21 Blood Culture - Preliminary, Resulted No Growth after 48 hours. All Specime... 08/18/21 Blood Culture - Preliminary, Resulted No Growth after 48 hours. All Specime... 08/18/21 Respiratory Virus Panel (PCR) ([facility]) - Final, Complete BERTA SCHMITT DO Aug 21, 2021 11:12
[2021-08-21 12:00] VITALS: BP 150/100
[2021-08-21 14:00] VITALS: BP 158/102
[2021-08-21 20:00] VITALS: BP 158/98
[2021-08-21] MEDS: **NOTE PATIENT COMMENT** MISC XX SCH (20:23)
[2021-08-22] MEDS: PERCOCET 5MG/325MG TAB PO PRN ×2 (02:53→14:29)
[2021-08-22 04:00] VITALS: BP 140/84
[2021-08-22] MEDS: OXAZEPAM 10 MG CAP PO SCH ×2 (05:42→14:19)
[2021-08-22] MEDS: PIPERACILLIN/TAZOBACTAM SOD 4.5 GM in D5W MINI-BAG PLUS 50 ML IV SCH ×2 (05:43→11:57)
[2021-08-22] MEDS: MORPHINE 2 MG/ML 1ML VIAL (J2270) IV PRN ×2 (05:43→11:57)
[2021-08-22 06:00] VITALS: BP 140/84
[2021-08-22 06:44] LABS: HEMATOCRIT 36.6 % (42.0-52.0); HEMOGLOBIN 12.9 g/dl (13.5-17.5); MEAN CORPUSCULAR HEMOGLOBIN 34.4 pg (27.0-33.0); MEAN CORPUSCULAR HGB CONC 35.2 g/dl (32.0-36.5); MEAN CORPUSCULAR VOLUME 97.6 fl (80.0-96.0); RED BLOOD COUNT 3.75 10^6/uL (4.30-6.10)
[2021-08-22 06:46] LABS: PLATELET COUNT, AUTOMATED 407 10^3/uL (150-450)
[2021-08-22 07:03] LABS: BLOOD UREA NITROGEN 8 MG/DL (7-18); CARBON DIOXIDE LEVEL 28 MEQ/L (21-32); CHLORIDE LEVEL 99 MEQ/L (98-107); CREATININE FOR GFR 0.73 MG/DL (0.70-1.30); GLOMERULAR FILTRATION RATE > 60.0 (>60); GLUCOSE, FASTING 86 MG/DL (70-100); MAGNESIUM LEVEL 2.1 MG/DL (1.8-2.4); POTASSIUM SERUM 3.5 MEQ/L (3.5-5.1); SODIUM LEVEL 134 MEQ/L (136-145)
[2021-08-22] MEDS: MULTIVITAMINS/MINERALS THERAP 1 TAB PO SCH (08:11)
[2021-08-22] MEDS: LIDOCAINE 5% (LIDODERM) PATCH TD SCH (08:11)
[2021-08-22] MEDS: FOLIC ACID 1 MG TAB PO SCH (08:12)
[2021-08-22 10:00] VITALS: BP 145/80
[2021-08-22 14:00] VITALS: BP 150/90
--- NOTE | 2021-08-22 14:00 | REP ---
INDICATION: Recurrent fever, pain, infected/necrotic pancreatic cyst?. COMPARISON: Multiple the latest 08/18/2021 at 10:16 a.m. TECHNIQUE: Standard helical technique after the intravenous administration of 100 cc Isovue 370 FINDINGS: The bilateral pleural effusions seen on the prior examination have decreased. Bibasilar subsegmental atelectatic changes with air bronchograms are again noted status quo. Once again, there is fluid in the anterior pararenal space with diffuse fatty infiltration along with fluid in the lesser sac and within the left paracolic gutter. This appears unchanged. The cystic structure seen in the pancreatic head region is unchanged. The liver, gallbladder, spleen, adrenal glands, and kidneys are unchanged. The abdominal aorta and para-aortic regions are unchanged. There is no significant change in appearance of the bowel loops or the mesenteries. There is a small amount of free pelvic fluid status quo. The amount of free fluid seen previously within Rouse's pouch and right paracolic gutter has decreased. Bone window technique throughout the examination shows no change in the osseous structures. IMPRESSION: 1. Lung bases as described above. 2. Findings consistent with pancreatitis with decreased amount of fluid as described above. Otherwise, there is no significant change. <Electronically signed by David Bustillo > 08/22/21 [id number]
[2021-08-22] MEDS ORDERED: OXAZ10CA3 PO (14:34)
[2021-08-22] MEDS ORDERED: PERCOCET PO (14:34)
[2021-08-22] MEDS ORDERED: FOLI1TAB11 PO (14:34)
[2021-08-22] MEDS ORDERED: AUGM875T28 PO (14:34)
[2021-08-22] MEDS ORDERED: THIA100T7 PO (14:37)
--- NOTE | 2021-08-22 21:02 | DS.PDOC ---
Discharge Summary General Date of Admission Aug 18, 2021 at 13:39 Date of Discharge Aug 22, 2021 Discharge Summary PROCEDURES PERFORMED DURING STAY: None ADMITTING DIAGNOSES: 1. Possible aspiration pneumonia 2. Acute alcohol withdrawal 3. Bilateral pleural effusions 4. Acute pancreatitis secondary to alcohol use disorder 5. Low back pain 6. Pancreatic cysts DISCHARGE DIAGNOSES: 1. Possible aspiration pneumonia 2. Acute alcohol withdrawal 3. Bilateral pleural effusions 4. Acute pancreatitis secondary to alcohol use disorder 5. Low back pain 6. Pancreatic cysts COMPLICATIONS/CHIEF COMPLAINT: Acute Pancreatitis, Alcohol Withdrawal Delirium. HISTORY OF PRESENT ILLNESS: Copied from admitting provider's H&P " 31-year-old male with a past medical history of call use disorder, recently admitted for acute pancreatitis and acute alcohol withdrawal, left AMA on 07/2721. Patient. Return to the ER with confusion tremulousness. His abdominal pain has improved from prior examination and in fact abdominal imaging including MRCP did not show sac, bile duct dilation but did indicate findings consistent with pancreatitis as well as a pancreatic pseudocyst versus small hemorrhage measuring 2.1 cm. During past admission patient was treated with Serax as well as as needed IV Valium and Ativan. Patient had developed a fever tachycardia tachypnea and see of 2 days of ceftriaxone and metronidazole. Upon returning to the ER patient is tachypneic and tachycardic with a fever of 101.3. Patient states that he has low back pain but otherwise denies any abdominal pain. Chest x-ray and CT angiogram of the chest showed no pulmonary embolism but did indicate bilateral moderate pleural effusions. CT abdomen showing redemonstration of acute pancreatitis. Lipase has trended down. Patient was started empiric Zosyn, will be admitted to hospitalist service for ongoing management of acute pancreatitis as well as acute alcohol withdrawal with suspected delirium tremens. " HOSPITAL COURSE: Patient did well during this hospitalization. Patient was put on Zosyn for possible infection or Serax for alcohol withdrawal. Patient initially had fevers daily. Last fever was on 08/20/2021. Patient did not have abdominal pain and was advanced to a regular diet. With the resolution of the abdominal pain, he had persistent back pain. Responded well to Percocet. His back pain may have been from his pancreatic cysts. I touched base with GI, Dr. Cabrera. Recommended thiamine and folic acid for pancreatic healing. Also recommended GI follow up for the pancreatic cyst in 4 to 6 weeks. Otherwise, today, he felt ready for home. He expressed interest in alcohol cessation and I requested PFS to provide information about community resources. I sent him home with Serax taper for the alcohol withdrawal. DISCHARGE MEDICATIONS: Please see below. ALLERGIES: Please see below. PHYSICAL EXAMINATION ON DISCHARGE: VITAL SIGNS: Please see below. GENERAL: Comfortable, in no apparent distress HEENT: Head normocephalic, atraumatic NECK: Supple CARDIOVASCULAR EXAMINATION: Regular rate and rhythm RESPIRATORY EXAMINATION: Lungs clear to auscultation bilaterally ABDOMINAL EXAMINATION: Soft, non-tender, normal bowel sounds EXTREMITIES: No pitting edema bilaterally SKIN: Warm and dry NEUROLOGICAL EXAMINATION: CN 3-12 grossly intact PSYCHIATRIC EXAMINATION: Normal mood and affect LABORATORY DATA: Please see below. IMAGING: Please see chart for radiology reports PROGNOSIS: Good ACTIVITY: As tolerated. DIET: As tolerated DISCHARGE PLAN: Home DISPOSITION: 01 Home, Self-Care. DISCHARGE INSTRUCTIONS: 1. Follow up with PCP within 1 week ITEMS TO FOLLOWUP ON ON OUTPATIENT: 1. Alcohol cessation DISCHARGE CONDITION: Stable. Total time spent on discharge planning, discharge summary, and medication r econciliation: 40 minutes Vital Signs/I&Os Vital Signs Date Time Temp Pulse Resp B/P (MAP) Pulse Ox O2 Delivery O2 Flow Rate FiO2 08/22/21 15:03 18 Room Air 08/22/21 14:00 98.4 82 150/90 (110) 96 08/18/21 10:22 3.0 I&O- Last 24 Hours up to 6 AM 08/22/21 06:00 Intake Total 1040 ml Balance 1040 ml Laboratory Data Labs 24H Laboratory Tests 2 08/22/21 05:19: Nucleated Red Blood Cells % (auto) 0.0, Anion Gap 7L, Glomerular Filtration Rate > 60.0, Calcium Level 9.0, Magnesium Level 2.1 CBC/BMP Laboratory Tests 08/22/21 05:19 Microbiology Microbiology 08/20/21 Blood Culture - Preliminary, Resulted No Growth after 48 hours. All Specime... 08/20/21 Blood Culture - Preliminary, Resulted No Growth after 48 hours. All Specime... 08/18/21 Blood Culture - Preliminary, Resulted No Growth after 72 hours. All specime... 08/18/21 Blood Culture - Preliminary, Resulted No Growth after 72 hours. All specime... 08/18/21 Respiratory Virus Panel (PCR) ([facility]) - Final, Complete Discharge Medications Scheduled Amoxicillin/Potassium Clav (Augmentin 875-125 Tablet) 1 Each Tablet, 1 TAB PO BID Folic Acid (Folic Acid) 1 Mg Tablet, 1 MG PO DAILY Oxazepam (Oxazepam) 10 Mg Capsule, 10 MG PO TAPER Take 2tab 3xday for 3days,then 1tab 3xday for 3days,then 1tab 2xday for 3days,then 1tab daily for 3days,then stop Thiamine HCl (Thiamine HCl) 100 Mg Tablet, 100 MG PO DAILY Scheduled PRN Oxycodone/Acetaminophen (Oxycodone-Acetaminophen 5-325) 1 Each Tablet, 1 TAB PO Q4HP PRN for MODERATE PAIN (PS 5-7) Allergies Coded Allergies: azithromycin (Verified Allergy, Unknown, RASH, 08/18/21) BERTA CSHMITT DO Aug 22, 2021 21:02
== END 2021-08-22 15:55 | disposition home or self-care (01) | DRG 282 ==
LOC: M ED 01:19 → M ED INP 13:39 → ENRESERV 14:26 → M MSPAV 15:09
PROVIDERS: ADMIT Family Medicine; ATTEND Internal Medicine
DX: K85.90 Acute pancreatitis without necrosis or infection, unspecified (principal); J18.9 Pneumonia, unspecified organism; F10.131 Alcohol abuse with withdrawal delirium; J90 Pleural effusion, not elsewhere classified; M54.59 Other low back pain; R50.9 Fever, unspecified; F17.290 Nicotine dependence, other tobacco product, uncomplicated; F12.10 Cannabis abuse, uncomplicated; Z88.1 Allergy status to other antibiotic agents; Z20.822 Contact with and (suspected) exposure to COVID-19; K86.2 Cyst of pancreas

== ENCOUNTER 2021-12-25 11:30 | Emergency (ER) | payer OTHER, SELFPAY ==
[~2021-12-25] VITALS: Ht 177.8 cm; Wt 82.0 kg
[~2021-12-25 11:30] MED LIST changes: +AUGM875T28 PO; +FOLI1TAB11 PO; +OXAZ10CA3 PO; +THIA100T7 PO
[2021-12-25] MEDS ORDERED: NS 1,000 ML IV ONE (11:40)
[2021-12-25 12:02] LABS: BASO # 0.1 10^3/uL (0.0-0.2); BASO % 0.5 % (0.0-1.0); EOS % 0.2 % (0.0-3.0); HEMATOCRIT 42.6 % (42.0-52.0); HEMOGLOBIN 15.1 g/dl (13.5-17.5); LYMPH # 0.9 10^3/uL (1.5-5.0); LYMPH % 6.8 % (24.0-44.0); MEAN CORPUSCULAR HEMOGLOBIN 33.3 pg (27.0-33.0); MEAN CORPUSCULAR HGB CONC 35.4 g/dl (32.0-36.5); MONO # 1.3 10^3/uL (0.0-0.8); MONO % 9.6 % (2.0-8.0); NEUTROPHILS # 10.7 10^3/uL (1.5-8.5); NEUTROPHILS % 82.1 % (36.0-66.0); PLATELET COUNT, AUTOMATED 197 10^3/uL (150-450); RED BLOOD COUNT 4.53 10^6/uL (4.30-6.10); WHITE BLOOD COUNT 13.1 10^3/uL (4.0-10.0)
[2021-12-25 12:32] LABS: BLOOD UREA NITROGEN 7 MG/DL (7-18); CARBON DIOXIDE LEVEL 21 MEQ/L (21-32); CHLORIDE LEVEL 99 MEQ/L (98-107); CREATININE FOR GFR 0.96 MG/DL (0.70-1.30); ETHYL ALCOHOL (ETHANOL) 0.047 % (0.000-0.010); GLOMERULAR FILTRATION RATE > 60.0 (>60); GLUCOSE, FASTING 140 MG/DL (70-100); MAGNESIUM LEVEL 1.8 MG/DL (1.8-2.4); POTASSIUM SERUM 3.8 MEQ/L (3.5-5.1); SODIUM LEVEL 135 MEQ/L (136-145); THYROID STIMULATING HORMONE 0.496 uIU/ML (0.358-3.740)
[2021-12-25] MEDS ORDERED: OXAZEPAM 15MG CAP PO ONE (13:35)
[2021-12-25 14:08] LABS: ALBUMIN 4.6 GM/DL (3.2-5.2); ALT/SGPT 209 U/L (12-78); BILIRUBIN,DIRECT 0.4 MG/DL (0.0-0.2); BILIRUBIN,TOTAL 1.4 MG/DL (0.2-1.0); TOTAL PROTEIN 7.9 GM/DL (6.4-8.2)
[2021-12-25 14:45] VITALS: BP 147/81
[2021-12-25] MEDS ORDERED: OXAZ10CA3 PO ×2 (14:48→15:20)
[2021-12-25 15:32] LABS: FREE T4 0.91 NG/DL (0.76-1.46)
== END 2021-12-25 15:14 | disposition home or self-care (01) ==
LOC: M ED 11:30 → EDBD 11:30 → M ED 15:14
DX: Z04.1 Encounter for examination and observation following transport accident (principal); R56.9 Unspecified convulsions; Z88.1 Allergy status to other antibiotic agents

== ENCOUNTER 2022-01-15 11:59 | Inpatient (IN) | payer MEDICAID, OTHER, SELFPAY ==
[~2022-01-15] VITALS: Ht 177.8 cm; Wt 87.4 kg
[2022-01-15] MEDS ORDERED: NS 1,000 ML IV ONE (12:20)
[2022-01-15] MEDS ORDERED: KETOROLAC 30 MG/ML 1ML VIAL IV ONE (12:20)
[2022-01-15] MEDS ORDERED: HALOPERIDOL 5MG/ML VIAL (J1630 PER 1) IV ONE (12:20)
[2022-01-15 13:00] LABS: BASO # 0.1 10^3/uL (0.0-0.2); BASO % 0.3 % (0.0-1.0); EOS # 0.1 10^3/uL (0.0-0.5); EOS % 0.8 % (0.0-3.0); HEMOGLOBIN 16.2 g/dl (13.5-17.5); LYMPH # 1.4 10^3/uL (1.5-5.0); LYMPH % 8.6 % (24.0-44.0); MEAN CORPUSCULAR HEMOGLOBIN 33.1 pg (27.0-33.0); MEAN CORPUSCULAR HGB CONC 35.2 g/dl (32.0-36.5); MEAN CORPUSCULAR VOLUME 93.9 fl (80.0-96.0); MONO # 0.8 10^3/uL (0.0-0.8); MONO % 4.9 % (2.0-8.0); NEUTROPHILS # 13.4 10^3/uL (1.5-8.5); NEUTROPHILS % 84.9 % (36.0-66.0); PLATELET COUNT, AUTOMATED 372 10^3/uL (150-450); WHITE BLOOD COUNT 15.8 10^3/uL (4.0-10.0)
[2022-01-15 13:25] LABS: ACETAMINOPHEN LEVEL < 2.0 UG/ML (10.0-30.0); ALBUMIN 4.5 GM/DL (3.2-5.2); ALT/SGPT 82 U/L (12-78); AMYLASE 447 U/L (25-115); BILIRUBIN,DIRECT 0.1 MG/DL (0.0-0.2); BILIRUBIN,TOTAL 0.5 MG/DL (0.2-1.0); BLOOD UREA NITROGEN 11 MG/DL (7-18); CALCIUM LEVEL 10.2 MG/DL (8.5-10.1); CARBON DIOXIDE LEVEL 30 MEQ/L (21-32); CHLORIDE LEVEL 107 MEQ/L (98-107); CREATININE FOR GFR 0.98 MG/DL (0.70-1.30); ETHYL ALCOHOL (ETHANOL) < 0.003 % (0.000-0.010); GLOMERULAR FILTRATION RATE > 60.0 (>60); GLUCOSE, FASTING 132 MG/DL (70-100); LIPASE 4416 U/L (73-393); POTASSIUM SERUM 4.4 MEQ/L (3.5-5.1); SALICYLATE LEVEL < 1.7 MG/DL (5.0-30.0); SODIUM LEVEL 142 MEQ/L (136-145); TOTAL PROTEIN 7.7 GM/DL (6.4-8.2)
[2022-01-15] MEDS ORDERED: NS 1,000 ML IV SCH (13:35)
[2022-01-15] MEDS ORDERED: ISOVUE-370 76% 100ML VIAL As Ordered ONE (13:35)
[2022-01-15] MEDS ORDERED: MORPHINE 4 MG/ML 1ML VIAL/SYRINGE IV PRN (13:40)
[2022-01-15] MEDS ORDERED: HOME MED LIST COMPLETE! XX SCH (15:00)
[2022-01-15] MEDS ORDERED: MORPHINE 2 MG/ML 1ML VIAL IV PRN ×2 (15:50)
[2022-01-15] MEDS ORDERED: ONDANSETRON 4MG/2ML VIAL IV PRN (15:50)
[2022-01-15] MEDS: NS 1,000 ML IV SCH ×2 (15:50→21:59)
[2022-01-15 16:18] LABS: RSV AMPLIFICATION NEGATIVE (NEGATIVE)
[2022-01-15] MEDS ORDERED: LORazepam 2 MG TAB PO PRN (16:25)
[2022-01-15 18:17] LABS: AMPHETAMINES LEVEL URINE NEGATIVE (NEGATIVE); BARBITURATES URINE NEGATIVE (NEGATIVE); BENZODIAZEPINES URINE NEGATIVE (NEGATIVE); CANNABINOIDS URINE POSITIVE (NEGATIVE); COCAINE METABOLITE URINE NEGATIVE (NEGATIVE); METHADONE URINE NEGATIVE (NEGATIVE); OPIATES URINE POSITIVE (NEGATIVE); PHENCYCLIDINE URINE NEGATIVE (NEGATIVE)
[2022-01-15 18:30] LABS: INR 0.92; PROTHROMBIN TIME 12.8 SECONDS (12.7-14.5)
[2022-01-15 19:30] VITALS: BP 154/97
[2022-01-15] MEDS: THIAMINE 100 MG TAB PO SCH (21:57)
[2022-01-15 22:00] VITALS: BP 153/99
[2022-01-15] MEDS: MORPHINE 2 MG/ML 1ML VIAL IV PRN (22:11)
[2022-01-16] MEDS: NS 1,000 ML IV SCH ×3 (05:38→19:21)
[2022-01-16] MEDS: MORPHINE 2 MG/ML 1ML VIAL IV PRN ×4 (05:41→22:12)
[2022-01-16 06:00] VITALS: BP 150/99
[2022-01-16 07:14] LABS: HEMOGLOBIN 13.5 g/dl (13.5-17.5); MEAN CORPUSCULAR HEMOGLOBIN 33.2 pg (27.0-33.0); MEAN CORPUSCULAR HGB CONC 34.6 g/dl (32.0-36.5); MEAN CORPUSCULAR VOLUME 95.8 fl (80.0-96.0); PLATELET COUNT, AUTOMATED 278 10^3/uL (150-450); RED BLOOD COUNT 4.07 10^6/uL (4.30-6.10); WHITE BLOOD COUNT 13.1 10^3/uL (4.0-10.0)
[2022-01-16 07:42] LABS: ALBUMIN 3.3 GM/DL (3.2-5.2); ALT/SGPT 57 U/L (12-78); BILIRUBIN,TOTAL 0.6 MG/DL (0.2-1.0); BLOOD UREA NITROGEN 9 MG/DL (7-18); CALCIUM LEVEL 8.6 MG/DL (8.5-10.1); CARBON DIOXIDE LEVEL 28 MEQ/L (21-32); CHLORIDE LEVEL 109 MEQ/L (98-107); CREATININE FOR GFR 0.74 MG/DL (0.70-1.30); GLOMERULAR FILTRATION RATE > 60.0 (>60); GLUCOSE, FASTING 99 MG/DL (70-100); POTASSIUM SERUM 3.7 MEQ/L (3.5-5.1); SODIUM LEVEL 140 MEQ/L (136-145)
[2022-01-16] MEDS: ENOXAPARIN 40MG/0.4ML SYRINGE (J1650 PER 10MG) SC SCH (08:23)
[2022-01-16] MEDS: THIAMINE 100 MG TAB PO SCH ×2 (08:23→21:19)
[2022-01-16] MEDS: FOLIC ACID 1 MG TAB PO SCH (08:23)
[2022-01-16] MEDS: MULTIVITAMINS/MINERALS THERAP 1 TAB PO SCH (08:23)
[2022-01-16] MEDS: amLODIPine 5 MG TAB PO SCH (08:24)
[2022-01-16] MEDS: PANTOPRAZOLE 40MG TAB (PROTONIX) PO SCH (08:30)
[2022-01-16] MEDS: SUCRALFATE 1 GM TAB PO SCH ×3 (11:32→21:19)
[2022-01-16 14:00] VITALS: BP 141/85
[2022-01-16 22:00] VITALS: BP 151/93
[2022-01-17] MEDS: MORPHINE 2 MG/ML 1ML VIAL IV PRN (05:05)
[2022-01-17 05:50] LABS: HEMATOCRIT 39.5 % (42.0-52.0); HEMOGLOBIN 13.6 g/dl (13.5-17.5); MEAN CORPUSCULAR HEMOGLOBIN 32.9 pg (27.0-33.0); MEAN CORPUSCULAR HGB CONC 34.4 g/dl (32.0-36.5); MEAN CORPUSCULAR VOLUME 95.6 fl (80.0-96.0); PLATELET COUNT, AUTOMATED 265 10^3/uL (150-450); RED BLOOD COUNT 4.13 10^6/uL (4.30-6.10); WHITE BLOOD COUNT 7.5 10^3/uL (4.0-10.0)
[2022-01-17 06:00] VITALS: BP 120/73
[2022-01-17 06:13] LABS: ALBUMIN 3.6 GM/DL (3.2-5.2); ALT/SGPT 53 U/L (12-78); BILIRUBIN,TOTAL 0.6 MG/DL (0.2-1.0); BLOOD UREA NITROGEN 7 MG/DL (7-18); CALCIUM LEVEL 9.2 MG/DL (8.5-10.1); CARBON DIOXIDE LEVEL 30 MEQ/L (21-32); CHLORIDE LEVEL 107 MEQ/L (98-107); CREATININE FOR GFR 0.69 MG/DL (0.70-1.30); GLOMERULAR FILTRATION RATE > 60.0 (>60); GLUCOSE, FASTING 88 MG/DL (70-100); POTASSIUM SERUM 4.3 MEQ/L (3.5-5.1); SODIUM LEVEL 143 MEQ/L (136-145); TOTAL PROTEIN 6.4 GM/DL (6.4-8.2)
[2022-01-17 08:15] VITALS: BP 120/73
[2022-01-17 08:22] VITALS: BP 120/73
[2022-01-17] MEDS: THIAMINE 100 MG TAB PO SCH (08:37)
[2022-01-17] MEDS: NS 1,000 ML IV SCH (08:37)
[2022-01-17 08:38] VITALS: BP 135/86
[2022-01-17] MEDS: amLODIPine 5 MG TAB PO SCH (08:38)
[2022-01-17] MEDS: PANTOPRAZOLE 40MG TAB (PROTONIX) PO SCH (08:39)
[2022-01-17] MEDS: MULTIVITAMINS/MINERALS THERAP 1 TAB PO SCH (08:39)
[2022-01-17] MEDS: ENOXAPARIN 40MG/0.4ML SYRINGE (J1650 PER 10MG) SC SCH (08:39)
[2022-01-17] MEDS: FOLIC ACID 1 MG TAB PO SCH (08:39)
[2022-01-17] MEDS: SUCRALFATE 1 GM TAB PO SCH (08:39)
[2022-01-17] MEDS ORDERED: VITMTA PO (10:27)
[2022-01-17] MEDS ORDERED: THIA100TA PO (10:27)
[2022-01-17] MEDS ORDERED: AMLO1TAB24 PO (10:27)
[2022-01-17] MEDS ORDERED: FOLI1TAB11 PO (10:27)
== END 2022-01-17 12:00 | disposition home or self-care (01) | DRG 282 ==
LOC: M ED 11:59 → M ED INP 15:42 → M MS5PR 19:28
PROVIDERS: ADMIT Internal Medicine; ATTEND Internal Medicine
DX: K85.20 Alcohol induced acute pancreatitis without necrosis or infection (principal); F10.10 Alcohol abuse, uncomplicated; Z88.1 Allergy status to other antibiotic agents; Z20.822 Contact with and (suspected) exposure to COVID-19; I10 Essential (primary) hypertension

== ENCOUNTER 2022-06-13 11:36 | Emergency (ER) | payer BC, MEDICAID ==
[~2022-06-13] VITALS: Ht 177.8 cm; Wt 81.8 kg
[~2022-06-13 11:36] MED LIST changes: +AMLO1TAB24 PO; +THIA100TA PO; +VITMTA PO
[2022-06-13] MEDS ORDERED: LIDOCAINE W/EPINEPHRINE 1% 20ML VIAL SC ONE (13:55)
[2022-06-13] MEDS ORDERED: BACITRACIN OINTMENT 30GM TUBE TOP STA (14:44)
[2022-06-13] MEDS ORDERED: CEPHALEXIN 500 MG CAP PO ONE (14:45)
[2022-06-13] MEDS ORDERED: CEPH500C PO (14:49)
[2022-06-13 15:15] VITALS: BP 134/80
== END 2022-06-13 15:16 | disposition home or self-care (01) ==
LOC: M ED 11:36
DX: S81.811A Laceration without foreign body, right lower leg, initial encounter (principal); W22.8XXA Striking against or struck by other objects, initial encounter; Y92.018 Other place in single-family (private) house as the place of occurrence of the external cause; Z88.1 Allergy status to other antibiotic agents

== ENCOUNTER 2022-11-01 08:54 | Inpatient (IN) | payer BC, MEDICAID ==
[~2022-11-01] VITALS: Ht 177.8 cm; Wt 82.7 kg
[~2022-11-01 08:54] MED LIST changes: +CEPH500C PO
[2022-11-01] MEDS ORDERED: FOLIC ACID 1MG TAB PO SCH (09:00)
[2022-11-01] MEDS ORDERED: MULTIVITAMINS/MINERALS THERAP 1 TAB PO SCH (09:00)
[2022-11-01] MEDS ORDERED: NS 1,000 ML IV ONE ×2 (09:30→11:25)
[2022-11-01] MEDS ORDERED: ONDANSETRON 4MG 2ML VIAL IV ONE (09:30)
[2022-11-01] MEDS: HYDROMORPHONE HCL 0.5 MG/ 0.5 ML SYRINGE IV PRN ×4 (10:05→21:29)
[2022-11-01 10:29] LABS: BASO % 0.3 % (0.0-1.0); EOS % 0.1 % (0.0-3.0); LYMPH # 0.5 10^3/uL (1.5-5.0); LYMPH % 4.7 % (24.0-44.0); MEAN CORPUSCULAR HEMOGLOBIN 33.5 pg (27.0-33.0); MEAN CORPUSCULAR HGB CONC 34.9 g/dl (32.0-36.5); MONO # 1.5 10^3/uL (0.0-0.8); MONO % 13.1 % (2.0-8.0); NEUTROPHILS # 9.2 10^3/uL (1.5-8.5); NEUTROPHILS % 81.4 % (36.0-66.0); PLATELET COUNT, AUTOMATED 179 10^3/uL (150-450); RED BLOOD COUNT 4.48 10^6/uL (4.30-6.10); WHITE BLOOD COUNT 11.3 10^3/uL (4.0-10.0)
[2022-11-01 10:37] LABS: ALKALINE PHOSPHATASE 71 U/L (46-116); ALT/SGPT 110 U/L (7.0-40); AST/SGOT 82 U/L (<34); BILIRUBIN,TOTAL 2.7 MG/DL (0.3-1.2); BLOOD UREA NITROGEN 19 MG/DL (9-23); CALCIUM LEVEL 10.2 MG/DL (8.5-10.1); CARBON DIOXIDE LEVEL 30 MMOL/L (20-31); CHLORIDE LEVEL 92 MMOL/L (98-107); CREATININE FOR GFR 0.78 MG/DL (0.70-1.30); GLOMERULAR FILTRATION RATE > 60.0 (>60); GLUCOSE, FASTING 101 MG/DL (60-100); POTASSIUM SERUM 4.1 MMOL/L (3.5-5.1); SODIUM LEVEL 134 MMOL/L (136-145); TOTAL PROTEIN 8.3 G/DL (5.7-8.2)
[2022-11-01 10:53] LABS: LIPASE 964 U/L (12-53)
[2022-11-01] MEDS ORDERED: LORazepam 2 MG/ML VIAL IV STA (11:31)
[2022-11-01] MEDS ORDERED: ISOVUE-370 76% 100ML VIAL As Ordered ONE (11:54)
[2022-11-01] MEDS: NS 1,000 ML IV SCH ×2 (13:15→23:20)
[2022-11-01] MEDS ORDERED: HYDROMORPHONE HCL 0.5 MG/ 0.5 ML SYRINGE IV PRN (13:15)
[2022-11-01] MEDS ORDERED: VITMTA PO (13:55)
[2022-11-01] MEDS ORDERED: HOME MED LIST COMPLETE! XX SCH (14:00)
[2022-11-01] MEDS: THIAMINE 100 MG TAB PO SCH ×2 (15:30→21:27)
[2022-11-01] MEDS: LORazepam 2 MG TAB PO PRN ×2 (15:30→19:09)
[2022-11-01] MEDS: OXAZEPAM 15MG CAP PO SCH ×2 (15:32→19:03)
[2022-11-02] MEDS: OXAZEPAM 15MG CAP PO SCH (01:10)
[2022-11-02] MEDS: NS 1,000 ML IV SCH (02:35)
[2022-11-02 05:18] VITALS: BP 151/94
[2022-11-02] MEDS: HYDROMORPHONE HCL 0.5 MG/ 0.5 ML SYRINGE IV PRN (05:20)
[2022-11-02 07:26] LABS: LIPASE 207 U/L (12-53); MAGNESIUM LEVEL 1.6 MG/DL (1.8-2.4)
[2022-11-02 07:28] LABS: BLOOD UREA NITROGEN 16 MG/DL (9-23); CALCIUM LEVEL 9.1 MG/DL (8.5-10.1); CARBON DIOXIDE LEVEL 27 MMOL/L (20-31); CHLORIDE LEVEL 95 MMOL/L (98-107); GLOMERULAR FILTRATION RATE > 60.0 (>60); GLUCOSE, FASTING 80 MG/DL (60-100); PHOSPHORUS LEVEL 2.3 MG/DL (2.5-4.9); POTASSIUM SERUM 3.9 MMOL/L (3.5-5.1); SODIUM LEVEL 132 MMOL/L (136-145)
[2022-11-02 07:32] LABS: HEMATOCRIT 37.6 % (42.0-52.0); MEAN CORPUSCULAR HEMOGLOBIN 33.9 pg (27.0-33.0); MEAN CORPUSCULAR HGB CONC 34.6 g/dl (32.0-36.5); MEAN CORPUSCULAR VOLUME 98.2 fl (80.0-96.0); PLATELET COUNT, AUTOMATED 140 10^3/uL (150-450); RED BLOOD COUNT 3.83 10^6/uL (4.30-6.10); WHITE BLOOD COUNT 10.9 10^3/uL (4.0-10.0)
[2022-11-02 07:58] LABS: CHOLESTEROL LEVEL 154 MG/DL (<200); CHOLESTEROL RISK RATIO 2.26 (<5); LDL CHOLESTEROL 70.2 MG/DL (<100); NON-HDL-C 86 MG/DL; TRIGLYCERIDES LEVEL 79 MG/DL (<150)
[2022-11-02 08:00] LABS: OSMOLALITY SERUM 277 MOSM/KG (275-295)
[2022-11-02 08:01] LABS: THYROID STIMULATING HORMONE 1.337 uIU/ML (0.55-4.78)
[2022-11-02] MEDS ORDERED: VITMTA PO (08:18)
[2022-11-02] MEDS ORDERED: FOLI1TAB11 PO (08:18)
[2022-11-02] MEDS ORDERED: THIA100TA PO (08:18)
[2022-11-02] MEDS ORDERED: NORV5TAB PO (08:55)
[2022-11-02] MEDS ORDERED: ENOXAPARIN 40MG/0.4ML SYRINGE (J1650 PER 10MG) SC SCH (09:00)
== END 2022-11-02 08:53 | disposition home or self-care (01) | DRG 282 ==
LOC: M ED 08:54 → M ED INP 13:12
PROVIDERS: ADMIT Internal Medicine; ATTEND Internal Medicine
DX: K85.20 Alcohol induced acute pancreatitis without necrosis or infection (principal); I10 Essential (primary) hypertension; D72.829 Elevated white blood cell count, unspecified; F10.10 Alcohol abuse, uncomplicated; Z88.1 Allergy status to other antibiotic agents

== ENCOUNTER 2023-02-01 19:56 | Emergency (ER) | payer MEDICAID, MEDICARE ==
[~2023-02-01] VITALS: Ht 177.8 cm; Wt 90.9 kg
[~2023-02-01 19:56] MED LIST changes: +NORV5TAB PO
[2023-02-01] MEDS ORDERED: GABA600T4 PO (20:36)
[2023-02-01] MEDS ORDERED: NALT50TA4 PO (20:36)
[2023-02-01] MEDS ORDERED: CLONI1TA PO (20:36)
[2023-02-01] MEDS ORDERED: NEUR300C PO (23:47)
[2023-02-02] VITALS: BP 141/98
== END 2023-02-02 00:07 | disposition home or self-care (01) ==
LOC: M ED 19:56
DX: F41.9 Anxiety disorder, unspecified (principal); T42.6X5A Adverse effect of other antiepileptic and sedative-hypnotic drugs, initial encounter; K85.20 Alcohol induced acute pancreatitis without necrosis or infection; F32.9 Major depressive disorder, single episode, unspecified; F10.10 Alcohol abuse, uncomplicated; F17.200 Nicotine dependence, unspecified, uncomplicated; Z88.1 Allergy status to other antibiotic agents; Z79.899 Other long term (current) drug therapy

== ENCOUNTER 2024-01-20 02:17 | Emergency (ER) | payer OTHER ==
[~2024-01-20] VITALS: Ht 177.8 cm; Wt 90.0 kg
[~2024-01-20 02:17] MED LIST changes: +CLONI1TA PO; +GABA600T4 PO; +NALT50TA4 PO; +NEUR300C PO
[2024-01-20 03:05] LABS: HEMATOCRIT 40.7 % (42.0-52.0); HEMOGLOBIN 14.3 g/dl (13.5-17.5); MEAN CORPUSCULAR HEMOGLOBIN 34.4 pg (27.0-33.0); MEAN CORPUSCULAR HGB CONC 35.1 g/dl (32.0-36.5); MEAN CORPUSCULAR VOLUME 97.8 fl (80.0-96.0); PLATELET COUNT, AUTOMATED 272 10^3/uL (150-450); RED BLOOD COUNT 4.16 10^6/uL (4.30-6.10); WHITE BLOOD COUNT 7.2 10^3/uL (4.0-10.0)
[2024-01-20 03:26] LABS: AMPHETAMINES LEVEL URINE NEGATIVE (NEGATIVE); BARBITURATES URINE NEGATIVE (NEGATIVE); CANNABINOIDS URINE NEGATIVE (NEGATIVE); COCAINE METABOLITE URINE NEGATIVE (NEGATIVE); METHADONE URINE NEGATIVE (NEGATIVE); OPIATES URINE NEGATIVE (NEGATIVE); PHENCYCLIDINE URINE NEGATIVE (NEGATIVE)
[2024-01-20 03:28] LABS: ETHYL ALCOHOL (ETHANOL) 0.154 % (0.000-0.010)
[2024-01-20 03:29] LABS: BENZODIAZEPINES URINE POSITIVE (NEGATIVE); SALICYLATE LEVEL < 3.0 MG/DL (<30)
[2024-01-20 03:30] LABS: ALBUMIN 4.4 G/DL (3.2-5.2); ALKALINE PHOSPHATASE 57 U/L (46-116); ALT/SGPT 91 U/L (7.0-40); AST/SGOT 66 U/L (<34); BILIRUBIN,DIRECT 0.1 MG/DL (<0.4); BILIRUBIN,TOTAL 0.3 MG/DL (0.3-1.2); BLOOD UREA NITROGEN 13 MG/DL (9-23); CALCIUM LEVEL 8.8 MG/DL (8.5-10.1); CARBON DIOXIDE LEVEL 27 MMOL/L (20-31); CHLORIDE LEVEL 106 MMOL/L (98-107); CREATININE FOR GFR 0.68 MG/DL (0.70-1.30); GLOMERULAR FILTRATION RATE > 60.0 (>60); GLUCOSE, FASTING 101 MG/DL (60-100); SODIUM LEVEL 142 MMOL/L (136-145); TOTAL PROTEIN 7.3 G/DL (5.7-8.2)
[2024-01-20 03:32] LABS: THYROID STIMULATING HORMONE 2.375 uIU/ML (0.55-4.78)
[2024-01-20 06:50] VITALS: BP 171/86; TEMP 98.1; O2SAT 99
== END 2024-01-20 06:52 | disposition home or self-care (01) ==
LOC: M ED 02:17
DX: F10.129 Alcohol abuse with intoxication, unspecified (principal); F43.0 Acute stress reaction; R45.851 Suicidal ideations; F17.200 Nicotine dependence, unspecified, uncomplicated; Z88.1 Allergy status to other antibiotic agents; Z79.891 Long term (current) use of opiate analgesic; Z79.899 Other long term (current) drug therapy

== ENCOUNTER → 2024-08-22 | Outpatient (CLI) | payer OTHER ==
[~2024-08-22] MED LIST changes: +GABA-1490 PO; -GABA600T4 PO
== END ==
LOC: M RAD 07:00
PROVIDERS: ATTEND Registered Nurse
DX: R94.5 Abnormal results of liver function studies (principal); F10.21 Alcohol dependence, in remission; K76.0 Fatty (change of) liver, not elsewhere classified

== ENCOUNTER 2024-09-15 15:23 | Emergency (ER) | payer OTHER ==
[~2024-09-15] VITALS: Ht 177.8 cm; Wt 83.4 kg
[2024-09-15] MEDS ORDERED: MELO7.5T35 (15:34)
[2024-09-15] MEDS ORDERED: TRAM50TA2 (15:34)
[2024-09-15 16:37] LABS: BASO # 0.1 10^3/uL (0.0-0.2); BASO % 0.9 % (0.0-1.0); EOS # 0.2 10^3/uL (0.0-0.5); EOS % 2.3 % (0.0-3.0); HEMATOCRIT 42.3 % (42.0-52.0); HEMOGLOBIN 14.9 g/dl (13.5-17.5); LYMPH # 0.8 10^3/uL (1.5-5.0); LYMPH % 11.1 % (24.0-44.0); MEAN CORPUSCULAR HEMOGLOBIN 34.7 pg (27.0-33.0); MEAN CORPUSCULAR HGB CONC 35.2 g/dl (32.0-36.5); MEAN CORPUSCULAR VOLUME 98.4 fl (80.0-96.0); MONO # 0.8 10^3/uL (0.0-0.8); MONO % 11.1 % (2.0-8.0); NEUTROPHILS # 5.3 10^3/uL (1.5-8.5); NEUTROPHILS % 74.5 % (36.0-66.0); PLATELET COUNT, AUTOMATED 126 10^3/uL (150-450)
[2024-09-15 16:54] LABS: LIPASE 136 U/L (12-53)
[2024-09-15 16:56] LABS: ALBUMIN 4.2 G/DL (3.2-5.2); ALKALINE PHOSPHATASE 131 U/L (40-129); ALT/SGPT 90 U/L (7.0-40); AST/SGOT 157 U/L (<34); BILIRUBIN,DIRECT 0.5 MG/DL (<0.4); BILIRUBIN,TOTAL 1.2 MG/DL (0.3-1.2); BLOOD UREA NITROGEN 6 MG/DL (9-23); CALCIUM LEVEL 9.2 MG/DL (8.5-10.1); CARBON DIOXIDE LEVEL 30 MMOL/L (20-31); CHLORIDE LEVEL 102 MMOL/L (98-107); CREATININE FOR GFR 0.55 MG/DL (0.70-1.30); GLOMERULAR FILTRATION RATE > 60.0 (>60); GLUCOSE, FASTING 110 MG/DL (60-100); POTASSIUM SERUM 3.7 MMOL/L (3.5-5.1); SODIUM LEVEL 141 MMOL/L (136-145); TOTAL PROTEIN 7.7 G/DL (5.7-8.2)
[2024-09-15] MEDS: METHOCARBAMOL 1,000 MG/10 ML VIAL IV ONE (18:40)
[2024-09-15] MEDS: KETOROLAC 30 MG/ML 1ML VIAL IV ONE (18:41)
[2024-09-15] MEDS: ONDANSETRON 4MG 2ML VIAL IV ONE (20:42)
[2024-09-15] MEDS: MORPHINE 4 MG/ML 1ML VIAL IV ONE (20:43)
[2024-09-15] MEDS ORDERED: OXYC-517 PO (21:50)
[2024-09-15 21:56] VITALS: BP 146/100; TEMP 98.3; O2SAT 95
== END 2024-09-15 22:05 | disposition home or self-care (01) ==
LOC: M ED 15:23
DX: K85.20 Alcohol induced acute pancreatitis without necrosis or infection (principal); K76.0 Fatty (change of) liver, not elsewhere classified; R93.7 Abnormal findings on diagnostic imaging of other parts of musculoskeletal system; F17.290 Nicotine dependence, other tobacco product, uncomplicated; Z88.1 Allergy status to other antibiotic agents
CPT/HCPCS: 74176; 80048; 80076; 81001; 83690; 85025; 86850; 86900; 86901; 96374; 96375; 99284; J1885; J2405; J2800

== ENCOUNTER → 2025-02-03 | Outpatient (CLI) | payer OTHER ==
[~2025-02-03] MED LIST changes: +MELO7.5T35; +OXYC-517 PO; +TRAM50TA2
== END ==
LOC: M OUTALCOH 07:52
PROVIDERS: ATTEND Psychiatry & Neurology Psychiatry
DX: F10.20 Alcohol dependence, uncomplicated (principal); Z72.0 Tobacco use

== ENCOUNTER 2025-02-16 07:45 | Outpatient (RCR) | payer OTHER | END 2025-02-18 | LOC: M OUTALCOH 07:45 | PROVIDERS: ATTEND Psychiatry & Neurology Psychiatry | DX: F10.20 Alcohol dependence, uncomplicated (principal); Z72.0 Tobacco use ==

== ENCOUNTER → 2025-05-11 | Outpatient (CLI) | payer OTHER | LOC: M PLAIMG 08:51 | PROVIDERS: ATTEND Registered Nurse | DX: M25.561 Pain in right knee (principal); M25.562 Pain in left knee ==

== ENCOUNTER 2025-05-15 22:51 | Observation (INO) | payer OTHER ==
[~2025-05-15] VITALS: Ht 177.8 cm; Wt 88.6 kg
[2025-05-15 23:21] LABS: BASO # 0.1 10^3/uL (0.0-0.2); BASO % 0.5 % (0.0-1.0); EOS # 0.0 10^3/uL (0.0-0.5); EOS % 0.1 % (0.0-3.0); LYMPH # 1.5 10^3/uL (1.5-5.0); LYMPH % 11.1 % (24.0-44.0); MONO # 0.6 10^3/uL (0.0-0.8); MONO % 4.0 % (2.0-8.0); NEUTROPHILS # 11.6 10^3/uL (1.5-8.5); NEUTROPHILS % 84.0 % (36.0-66.0); PLATELET COUNT, AUTOMATED 290 10^3/uL (150-450)
[2025-05-15] MEDS ORDERED: MORPHINE 2 MG/ML 1 ML VIAL IV PRN (23:30)
[2025-05-15] MEDS: NS (Normal Saline) 0.9% 2,660 ML in IV 1 EA IV ONE (23:36)
[2025-05-15] MEDS: MORPHINE 4 MG/ML 1 ML VIAL IV PRN (23:37)
[2025-05-15] MEDS: HALOPERIDOL LACTATE 5 MG/ML VIAL IV ONE (23:37)
[2025-05-15 23:46] LABS: ALT/SGPT 31 U/L (7.0-40); AST/SGOT 38 U/L (<34); CALCIUM LEVEL 10.5 MG/DL (8.5-10.1); CARBON DIOXIDE LEVEL 20 MMOL/L (20-31); CHLORIDE LEVEL 103 MMOL/L (98-107); CREATININE FOR GFR 1.05 MG/DL (0.70-1.30); GLOMERULAR FILTRATION RATE > 90.0 (>60); POTASSIUM SERUM 3.5 MMOL/L (3.5-5.1); SODIUM LEVEL 143 MMOL/L (136-145)
[2025-05-15 23:53] LABS: ETHYL ALCOHOL (ETHANOL) 0.006 % (0.000-0.010)
[2025-05-16 00:37] LABS: VENOUS BASE EXCESS -3.1 (-2.0-2.0); VENOUS HCO3 23.1 MMOL/L (23.0-27.0); VENOUS O2 SATURATION 67.4 % (60.0-80.0); VENOUS PARTIAL PRESSURE CO2 45.6 mmHg (38.0-50.0); VENOUS PARTIAL PRESSURE O2 38.0 mmHg (30.0-50.0); VENOUS PH 7.323 UNITS (7.330-7.430); VENOUS STANDARD HCO3 21.2 MMOL/L; VENOUS TOTAL CO2 24.5 MMOL/L (24.0-28.0)
[2025-05-16] MEDS ORDERED: ISOVUE-370 76% 100 ML VIAL As Ordered ONE (00:41)
[2025-05-16 01:55] LABS: AMPHETAMINES LEVEL URINE NEGATIVE (NEGATIVE); BARBITURATES URINE NEGATIVE (NEGATIVE); BENZODIAZEPINES URINE NEGATIVE (NEGATIVE); COCAINE METABOLITE URINE NEGATIVE (NEGATIVE); METHADONE URINE NEGATIVE (NEGATIVE); PHENCYCLIDINE URINE NEGATIVE (NEGATIVE)
[2025-05-16 02:22] LABS: CANNABINOIDS URINE POSITIVE (NEGATIVE); OPIATES URINE POSITIVE (NEGATIVE)
[2025-05-16] MEDS ORDERED: MORPHINE 4 MG/ML 1 ML VIAL IV PRN (04:10)
[2025-05-16] MEDS: NS (Normal Saline) 0.9% 1,000 ML IV SCH (04:58)
[2025-05-16] MEDS: ONDANSETRON 4MG 2ML VIAL IV ONE (04:58)
[2025-05-16] MEDS ORDERED: ACETAMINOPHEN 325 MG TAB PO PRN (05:20)
[2025-05-16] MEDS ORDERED: BUSP10TA79 PO (05:22)
[2025-05-16] MEDS ORDERED: VIVI380I IM (05:22)
[2025-05-16] MEDS ORDERED: MIRT1TAB PO (05:22)
[2025-05-16] MEDS ORDERED: AMIT25TA19 PO (05:22)
[2025-05-16] MEDS ORDERED: HOME MED LIST COMPLETE! XX SCH (05:25)
[2025-05-16] MEDS ORDERED: ONDANSETRON 4MG 2ML VIAL IV PRN (05:25)
[2025-05-16] MEDS: LR 1,000 ML IV SCH (06:03)
[2025-05-16 06:45] VITALS: TEMP 98.1
[2025-05-16] MEDS ORDERED: LR 1,000 ML IV SCH (07:35)
[2025-05-16 08:15] LABS: BASO # 0.0 10^3/uL (0.0-0.2); BASO % 0.2 % (0.0-1.0); EOS # 0.0 10^3/uL (0.0-0.5); EOS % 0.0 % (0.0-3.0); LYMPH # 0.9 10^3/uL (1.5-5.0); LYMPH % 9.0 % (24.0-44.0); MONO # 0.4 10^3/uL (0.0-0.8); MONO % 3.8 % (2.0-8.0); NEUTROPHILS # 8.5 10^3/uL (1.5-8.5); NEUTROPHILS % 86.7 % (36.0-66.0); PLATELET COUNT, AUTOMATED 211 10^3/uL (150-450)
[2025-05-16 08:50] LABS: ALT/SGPT 27 U/L (7.0-40); AST/SGOT 30 U/L (<34); CALCIUM LEVEL 9.5 MG/DL (8.5-10.1); CARBON DIOXIDE LEVEL 24 MMOL/L (20-31); CHLORIDE LEVEL 105 MMOL/L (98-107); CREATININE FOR GFR 0.96 MG/DL (0.70-1.30); GLOMERULAR FILTRATION RATE > 90.0 (>60); POTASSIUM SERUM 5.0 MMOL/L (3.5-5.1); SODIUM LEVEL 143 MMOL/L (136-145); TRIGLYCERIDES LEVEL 40 MG/DL (<150)
[2025-05-16] MEDS: AMITRIPTYLINE 25 MG TABLET PO SCH (09:30)
[2025-05-16] MEDS: PANTOPRAZOLE 40MG VIAL IV SCH (09:30)
[2025-05-16] MEDS ORDERED: PANT40TA29 PO ×2 (10:34→10:51)
[2025-05-16 13:15] VITALS: O2SAT 98
[2025-05-16 13:16] VITALS: BP 156/77
[2025-05-16] MEDS ORDERED: MIRTAZAPINE 7.5 MG PER 1/2 TABLET PO SCH (21:00)
== END 2025-05-16 14:00 | disposition home or self-care (01) ==
LOC: M ED 22:51 → EDBD 22:51 → M ED INP 05-16 05:20
PROVIDERS: ADMIT Student in an Organized Health Care Education/Training Program; ATTEND Student in an Organized Health Care Education/Training Program
DX: R10.13 Epigastric pain (principal); R11.2 Nausea with vomiting, unspecified; F12.188 Cannabis abuse with other cannabis-induced disorder; K86.1 Other chronic pancreatitis; K85.90 Acute pancreatitis without necrosis or infection, unspecified; D72.829 Elevated white blood cell count, unspecified; I10 Essential (primary) hypertension; F41.1 Generalized anxiety disorder; F10.11 Alcohol abuse, in remission; Z87.828 Personal history of other (healed) physical injury and trauma; Z80.3 Family history of malignant neoplasm of breast; Z80.0 Family history of malignant neoplasm of digestive organs; Z82.49 Family history of ischemic heart disease and other diseases of the circulatory system; Z79.899 Other long term (current) drug therapy; Z88.1 Allergy status to other antibiotic agents
CPT/HCPCS: 36415; 74177; 80048; 80076; 80307; 82010; 82077; 82150; 82803; 83690; 84478; 85025; 96361; 96374; 96375; 99285; J1630; J2405; J2470; Q9967

== ENCOUNTER → 2025-05-21 | Outpatient (RCR) | payer OTHER ==
[~2025-05-21] MED LIST changes: +AMIT25TA19 PO; +BUSP10TA79 PO; +MIRT1TAB PO; +PANT40TA29 PO; +VIVI380I IM
== END ==
LOC: M OUTALCOH 04-23 07:54
PROVIDERS: ATTEND Psychiatry & Neurology Psychiatry
DX: F10.20 Alcohol dependence, uncomplicated (principal); Z72.0 Tobacco use

== ENCOUNTER 2025-06-18 07:50 | Outpatient (RCR) | payer OTHER | END 2025-06-21 | LOC: M OUTALCOH 07:50 | PROVIDERS: ATTEND Psychiatry & Neurology Psychiatry | DX: F10.20 Alcohol dependence, uncomplicated (principal); Z72.0 Tobacco use ==

== ENCOUNTER 2025-07-06 10:00 | Outpatient (RCR) | payer OTHER | END 2025-07-21 | LOC: M OUTALCOH 10:00 | PROVIDERS: ATTEND Psychiatry & Neurology Psychiatry | DX: F10.20 Alcohol dependence, uncomplicated (principal); Z72.0 Tobacco use ==

== ENCOUNTER 2025-08-17 11:03 | Outpatient (RCR) | payer OTHER | END 2025-08-21 | LOC: M OUTALCOH 11:03 | PROVIDERS: ATTEND Psychiatry & Neurology Psychiatry | DX: F10.20 Alcohol dependence, uncomplicated (principal); Z72.0 Tobacco use ==

== ENCOUNTER → 2025-08-18 | Outpatient (REF) | LOC: M PLAIMG 10:22 | PROVIDERS: ATTEND Internal Medicine | DX: R52 Pain, unspecified (principal) ==

== ENCOUNTER → 2025-08-31 | Outpatient (CLI) | payer OTHER ==
[2025-08-31 13:18] LABS: INR 1.0
== END ==
LOC: M PLALAB 12:08
PROVIDERS: ATTEND Pain Medicine Pain Medicine
DX: K76.89 Other specified diseases of liver (principal)

== ENCOUNTER 2025-09-14 10:53 | Outpatient (RCR) | payer OTHER | END 2025-09-20 | LOC: M OUTALCOH 10:53 | PROVIDERS: ATTEND Psychiatry & Neurology Psychiatry | DX: F10.20 Alcohol dependence, uncomplicated (principal); Z72.0 Tobacco use ==

== ENCOUNTER 2025-10-12 10:28 | Outpatient (RCR) | payer OTHER | END 2025-10-21 | LOC: M OUTALCOH 10:28 | PROVIDERS: ATTEND Psychiatry & Neurology Psychiatry | DX: F10.20 Alcohol dependence, uncomplicated (principal); Z72.0 Tobacco use ==